=== PATIENT | male | born 1930 | race Caucasian/White ===

== ENCOUNTER 2018-03-28 17:38 | Inpatient (IN) | payer MEDICARE ==
[2018-03-28 17:52] LABS: Actual Bicarbonate (HCO3a) 13.8 mEq/L (22-28); Analyzer IN Cardio ER; Base Excess (BEa) -11.5 mEq/L (-2.0 to +3.0); CO2 Tension 30.3 mmHg (35.0-45.0); Calcium, Ionized 1.15 mmol/L (1.12-1.30); Carboxyhemoglobin (COHb) 0.2 gm% (0.0-3.0); Hemoglobin (Hb) 15.4 g/dL (14.0-18.0); O2 Tension (PaO2) 436.7 mmHg (> 60.0); Potassium - ABG Lab 3.27 mmol/L (3.70-5.30); pH, Arterial 7.28 (7.35-7.45)
[2018-03-28 17:53] LABS: ALV-art Gradient 24.525 (0-20); Puncture Site RRA
--- NOTE | 2018-03-28 18:15 | CT ---
HEAD CT NONCONTRAST: Indication: Altered mental status. Seizure. FINDINGS: There is global atrophy with compensatory dilatation of the ventricular system. Mild chronic ischemic disease. There is no acute intracranial hemorrhage, mass effect or midline shift. IMPRESSION: 1. No acute intracranial hemorrhage or mass effect. 2. Parenchymal atrophy. 3. Mild chronic microvascular ischemic disease. POS: [facility]
--- NOTE | 2018-03-28 18:22 | RAD ---
RIGHT ELBOW TWO VIEWS: History: Pain. FINDINGS/IMPRESSION: No evidence of fracture seen on two view exam. If there is concern for injury, recommend oblique view s. POS: [facility]
--- NOTE | 2018-03-28 18:25 | RAD ---
PORTABLE CHEST: History: Mental status change. Seizure. Post intubation. FINDINGS: ET tube has tip above the sonal. NG tube is in place. There is calcified plaque in both apical regio ns. The lungs appear clear. No infiltrate or vascular congestion. Heart size is normal. IMPRESSION: No acute lung process apparent. POS: [facility]
--- NOTE | 2018-03-28 18:27 | CT ---
CT CERVICAL SPINE: Technique: Multiple contiguous axial images were obtained through the cervical spine with multiplanar reconstruction. Indications: Metal status change, possible seizure. FINDINGS: There are degenerative changes of the cervical spine. Diffuse osteopenia. Loss of disc space and prom inent hypertrophic change. These changes result in central canal stenosis and foraminal stenosis at m ultiple levels. There is no evidence of acute fracture identified. IMPRESSION: Diffuse osteopenia with mottled density of the vertebral bodies. Myeloma or other similar process can not be excluded although these findings may be on the basis of severe osteoporosis. No acute fracture identified. POS: [facility]
[2018-03-28 18:28] LABS: Bilirubin Negative (Negative); Blood, Urine Moderate (Negative); Clarity CLOUDY (Clear); Glucose, Urine (Dipstick) 500 mg/dL (Negative); Leukocyte Negative (Negative); Nitrite Negative (Negative); Protein, Urine (Dipstick) 100 mg/dL (Neg-Trace); Specific Gravity, Urine 1.023 (1.002-1.036); Urobilinogen 0.2 mg/dL (0.2-1.0)
[2018-03-28] MEDS ORDERED: fentaNYL Citrate/PF 2,000 MCG in Sodium Chloride 0.9% 60 ML IV SCH (18:32)
[2018-03-28 18:34] LABS: Bacteria/HPF None Seen HPF (None Seen); RBC/HPF 0-3 HPF (0-3); Squamous Epithelial 0-3 HPF (0-3); WBC/HPF 0-3 HPF (0-3)
[2018-03-28 18:35] LABS: #Basophils 0.1 thou/uL (0.0-0.2); #Lymphocytes 0.3 thou/uL (1.20-3.40); #Monocytes 0.7 thou/uL (0.11-0.59); #Neutrophils 14.9 thou/uL (1.40-6.50); %Basophils 0.6 % (0.0-1.0); %Eosinophils 0.1 % (0.0-10.0); %Lymphocytes 1.6 % (21.0-51.0); %Monocytes 4.3 % (0.0-10.0); %Neutrophils 93.3 % (42.0-75.0); Hemoglobin 15.7 g/dL (14.0-18.0); Mean Corpuscular HGB CONC 32.9 g/dL (32.0-36.0); Mean Corpuscular Hemoglobin 33.1 pg (27.0-31.0); Mean Platelet Volume 7.9 fL (7.4-10.4); Platelet Count 220 thou/uL (130-400); RBC Distribution Width 12.7 % (11.5-14.5); Red Blood Cell (RBC) Count 4.73 mill/uL (4.70-6.10)
[2018-03-28 18:37] LABS: INR-International Normal Ratio 1.3; PTT 28.9 SEC (22.9-36.1)
[2018-03-28 18:50] LABS: Hyaline Casts/LPF 4-6 HYALINE CAST LPF (0-3 Hyaline); Other Casts/LPF 0-3 COARSE GRAN LPF (0-3 Hyaline); Renal Epithelial 0-3 HPF (0-3); Transitional Epithelial 0-3 HPF (0-3)
[2018-03-28 18:56] LABS: Troponin I 0.012 ng/mL (< 0.028)
[2018-03-28 18:57] LABS: ALT (SGPT) 20 U/L (8-55); AST (SGOT) 56 U/L (5-34); Albumin 4.3 g/dL (3.4-4.8); Alkaline Phosphatase 78 U/L (40-150); Anion Gap 23 mmol/L (10-20); BUN (Urea Nitrogen) 19 mg/dL (8.4-25.7); CK (CPK) 1816 U/L (30-200); Calc. Creatinine Clearance 0 mL/min (70-130); Calcium 9.4 mg/dL (7.8-10.44); Carbon Dioxide 14 mmol/L (23-31); Chloride 93 mmol/L (98-107); Estimated GFR-MDRD 71; Globulin 3.4 g/dL (2.4-3.5); Glucose 181 mg/dL (83-110); Potassium 3.7 mmol/L (3.5-5.1); Protein, Total 7.7 g/dL (5.8-8.1); Sodium 126 mmol/L (136-145)
[2018-03-28 18:58] LABS: CKMB 20.4 ng/mL (0-6.6)
--- NOTE | 2018-03-28 19:12 | RAD ---
PORTABLE CHEST SUPINE: Indications: Mental status change. Comparison: Same date, 5:45 p.m. FINDINGS: Central line is in place with tip overlying the SVC. ET tube and NG tube are unchanged. Lungs remain clear. No acute interval change. IMPRESSION: No acute finding. POS: [facility]
--- NOTE | 2018-03-28 20:00 | PDOC.FPRHP ---
- History of Present Illness Chief Complaint: AMS, seizure History of Present Illness: This is an 87 yo M here found at home in his bathtub by his son with AMS, w/ subsequent seizure with EMS en route to the ED. PMH significant for HTN and DM. Patient was intubated at the scene due to GCS <8. Patient was found by son today around 1600. The son had spoke to the patient the day prior and he was his normal self. The son estimates that the patient was in the bathtub from around 1000 until 1600. Per the son, the patient was easily arousable and was able to speak. The son states that he was altered and "speaking nonsense," but was able to respond to stimuli. The patient was unable to state what had happened. Per records, the patient had white frothy liquid around his mouth. Patient was hypertensive with elevated blood sugar 198 and BP 159/100. Per son, patient has never had a prior seizure, stroke, or cardiac issues. The patient lives at home alone. He has a cook who comes every day to prepare his meals. The cook was unable to come today as she has the flu. The patient has a spouse who is in a detention. Of note, the information above was obtained from the patient son who is the MPOA and ER records. Per the son, he and his sister are the MPOAs. The sister is arriving tomorrow from [place]. The son wishes to defer code status until tomorrow when she gets here to help make the decision. - Allergies/Adverse Reactions Allergies Allergy/AdvReac Type Severity Reaction Status Date / Time No Allergy Information Allergy Unverified 03/28/18 18:32 Available - History PMHx: DM, HTN PSHx: none FHx: none Social: no tobacco use, occasional alcohol, no drug use - Review of Systems ROS unobtainable: due to endotracheal tube - Vital signs BP: 164/84 HR: 88 RR: 44 Tmax: 95.9 Pox: 98% on ventilator Wt: 73kg - Physical Exam -Constitutional: ventilated, unresponsive HEENT: normocephalic and atraumatic -HEENT: pupils fixed, nonreactive, MM Dry Neck: supple, trachea midline Heart: RRR, normal S1/S2, no murmurs/rubs/gallops, pulses present, no edema Lungs: CTAB, no respiratory distress, good air movement Abdomen: soft, bowel sounds present Musculoskeletal: normal structure -Skin: Stage 2 right heel, stage 3 left heel, stage 3 right mid marcum, stage 2 sacrum, stage 2 gluteal fold; contusion on right elbow; contusions bilateral knees FMR H&P: Results - Labs Result Diagrams: 03/28/18 18:20 03/28/18 18:21 Lab results: WBC 16.0 thou/uL (4.8-10.8) H 03/28/18 18:20 Hgb 15.7 g/dL (14.0-18.0) 03/28/18 18:20 Hct 47.6 % (42.0-52.0) 03/28/18 18:20 MCV 101.0 fL (78.0-98.0) H 03/28/18 18:20 Plt Count 220 thou/uL (130-400) 03/28/18 18:20 Neutrophils % 93.3 % (42.0-75.0) H 03/28/18 18:20 ABG pH 7.28 (7.35-7.45) L 03/28/18 17:48 ABG pCO2 30.3 mmHg (35.0-45.0) L 03/28/18 17:48 ABG pO2 436.7 mmHg (> 60.0) H 03/28/18 17:48 Sodium 126 mmol/L (136-145) L 03/28/18 18:21 Potassium 3.7 mmol/L (3.5-5.1) 03/28/18 18:21 Chloride 93 mmol/L (98-107) L 03/28/18 18:21 Carbon Dioxide 14 mmol/L (23-31) L 03/28/18 18:21 BUN 19 mg/dL (8.4-25.7) 03/28/18 18:21 Creatinine 1.00 mg/dL (0.6-1.3) 03/28/18 18:21 Glucose 181 mg/dL (83-110) H 03/28/18 18:21 Lactic Acid 8.7 mmol/L (0.5-2.2) H* 03/28/18 18:20 Calcium 9.4 mg/dL (7.8-10.44) 03/28/18 18:21 Total Bilirubin 1.0 mg/dL (0.2-1.2) 03/28/18 18:21 AST 56 U/L (5-34) H 03/28/18 18:21 ALT 20 U/L (8-55) 03/28/18 18:21 Alkaline Phosphatase 78 U/L (40-150) 03/28/18 18:21 Creatine Kinase 1816 U/L (30-200) H 03/28/18 18:21 CK-MB (CK-2) 20.4 ng/mL (0-6.6) H* 03/28/18 18:20 Serum Total Protein 7.7 g/dL (5.8-8.1) 03/28/18 18:21 Albumin 4.3 g/dL (3.4-4.8) 03/28/18 18:21 Urine Ketones 40 mg/dL (Negative) H 03/28/18 18:00 Urine Blood Moderate (Negative) H 03/28/18 18:00 Urine Nitrite Negative (Negative) 03/28/18 18:00 Ur Leukocyte Esterase Negative (Negative) 03/28/18 18:00 Urine RBC 0-3 HPF (0-3) 03/28/18 18:00 Urine WBC 0-3 HPF (0-3) 03/28/18 18:00 Ur Squamous Epith Cells 0-3 HPF (0-3) 03/28/18 18:00 Urine Bacteria None Seen HPF (None Seen) 03/28/18 18:00 - Radiology Interpretation Chest x-ray Status: report reviewed by me (No acute finding) Other Status: report reviewed by me (CT - cervical spine - diffuse osteopenia, no acute fracture) FMR H&P: A/P - Problem List (1) Hyponatremia Current Visit: Yes Status: Acute Code(s): E87.1 - HYPO-OSMOLALITY AND HYPONATREMIA (2) Lactic acid acidosis Current Visit: Yes Status: Acute Code(s): E87.2 - ACIDOSIS (3) Altered mental state Current Visit: Yes Status: Acute Code(s): R41.82 - ALTERED MENTAL STATUS, UNSPECIFIED (4) Rhabdomyolysis Current Visit: Yes Status: Acute Code(s): M62.82 - RHABDOMYOLYSIS (5) Diabetes mellitus Current Visit: Yes Status: Acute Code(s): E11.9 - TYPE 2 DIABETES MELLITUS WITHOUT COMPLICATIONS - Plan SIRS - hypothermia and elevated WBC - No source of infection - Pro-alok ordered - blood and urine cx pending - LP to r/o meningitis Metabolic Encephalopathy - likely 2/2 to electrolyte abnormalities - Will give IVF, currently on vent and will wean as appropriate - Will obtain UDS and blood serum - serum drug screen - LP to r/o meningitis New onset seizure - Differential: electrolyte abnormality, stroke, mass, infection, intoxication - can consider MRI in the AM Acute Respiratory Failure - currently on ventilation - vent sedation protocol, vent management per pulm - Will monitor respiratory status and VS Rhabdomyolysis - CK 20.4 - Will give NS bolus and NS fluid maintenance - AM CMP, CK Lactic Acidosis - Will trend lactic acid - Will give NS Metabolic Acidosis - Will give NS Hyponatremia - Na 126 - Will start on NS @ 115mls/hr - Will repeat BMP every 4 hours - can consider bolus with NS Leukocytosis - Urine and blood cx pending - Will trend with CBC DM - mild SS - ACHS accuchecks Decubitus Ulcers, present on admission - stage 3 on right marcum and stage 2 right heel, stage 3 left heel, stage 2 sacrum, stage 2 gluteal fold - Wound care consulted DISPO: admit to ICU VTE prophylaxis: lovenox GI prophylaxis: protonix CODE: FULL, will need to have discussion with son and daughter FMR H&P: Upper Level - Plan Date/Time: 03/28/181953 I, [], have evaluated this patient and agree with findings/plan as outlined by regulatory internship resident. Pertinent changes/additions are listed here. Attending Addendum - Attending Addendum Date/Time: 03/28/182128 I personally evaluated the patient and discussed the management with Drs. Mitchell and Garcia at time of admission. I agree with the History, Examination, Assessment and Plan documented above with any addition or exceptions noted below. Uncelar what incitign event was. Infectious vs, electrlyte abnormality, vs stroke vs intxoication. [place] in progress. Antibiotics ordered.
[2018-03-28] MEDS ORDERED: Sodium Chloride 0.9% 1,000 ML IV SCH ×3 (20:44→21:15)
[2018-03-28] MEDS ORDERED: Morphine 2 MG/ML SYRINGE SLOW IVP PRN (20:45)
[2018-03-28] MEDS ORDERED: DISCONTINUE PREVIOUS NARCOTIC PAIN MEDICATIONS AND BENZODIAZEPINES FS SCH (20:45)
[2018-03-28] MEDS ORDERED: Lorazepam 2 MG/ML VIAL SLOW IVP PRN (20:45)
[2018-03-28] MEDS ORDERED: Propofol 1,000 MG/100 ML VIAL IV PRN (20:45)
[2018-03-28] MEDS ORDERED: Fentanyl BOLUS 250 ML IVPB PRN (20:45)
[2018-03-28] MEDS ORDERED: Propofol BOLUS 1,000 MG/100 ML VIAL IV PRN (20:45)
[2018-03-28] MEDS ORDERED: Ondansetron PF 4 MG/2 ML Vial IVP PRN (20:59)
[2018-03-28] MEDS ORDERED: Acetaminophen 650 MG Suppository PR PRN (20:59)
[2018-03-28] MEDS ORDERED: Acetaminophen 325 MG TAB PO PRN (20:59)
[2018-03-28] MEDS ORDERED: HumaLOG 300 UNITS/3 ML VIAL SC PRN (20:59)
[2018-03-28] MEDS ORDERED: Ondansetron ODT 4 MG TAB PO PRN (20:59)
[2018-03-28] MEDS ORDERED: Ventilator Sedation Protocol 1 EACH FS SCH (21:12)
[2018-03-28 21:44] LABS: Amphetamine Not Detected (NotDetected); Barbiturates Screen Not Detected (NotDetected); Benzodiazepine Screen Not Detected (NotDetected); Cocaine Metabolite Screen Not Detected (NotDetected); Medtox Control Line Valid? VALID (VALID); Medtox Reader # READER 1; Methadone Not Detected (NotDetected); Methamphetamine Not Detected (NotDetected); Opiate Screen Not Detected (NotDetected); Oxycodone Screen Not Detected (NotDetected); Phencyclidine (PCP) Not Detected (NotDetected); THC/Cannabinoid Screen Not Detected (NotDetected); Tricyclic Screen Not Detected (NotDetected)
[2018-03-28 21:51] LABS: Acetaminophen Less than 6.0 mcg/mL (10.0-30.0); Alcohol Less than 10 mg/dL (Less than 10); Salicylate Less than 8.0 mg/dL (15.0-30.0)
[2018-03-28 22:12] LABS: Anion Gap 13 mmol/L (10-20); BUN (Urea Nitrogen) 16 mg/dL (8.4-25.7); Calc. Creatinine Clearance 65 mL/min (70-130); Calcium 7.4 mg/dL (7.8-10.44); Carbon Dioxide 18 mmol/L (23-31); Chloride 101 mmol/L (98-107); Estimated GFR-MDRD Greater than 90; Glucose 131 mg/dL (83-110); Potassium 3.4 mmol/L (3.5-5.1); Sodium 129 mmol/L (136-145)
[2018-03-28] MEDS: Vancomycin HCl 1.5 GM in Sodium Chloride 0.9% 250 ML 300 ML IVPB SCH (23:02)
[2018-03-28 23:12] LABS: Lactic Acid 2.2 mmol/L (0.5-2.2)
[2018-03-28 23:45] LABS: Osmolality, Urine 648 mOsm/kg (300-900)
[2018-03-28] MEDS ORDERED: CCU Electrolyte Replacement 1 EACH FS ONE (23:55)
[2018-03-28] MEDS ORDERED: Magnesium 2 GM/NS 0.9% 100 ML 2 GM in Premix Bag 1 BAG IVPB PRN (23:56)
[2018-03-28] MEDS ORDERED: Potassium Phosphate 9 MMOL in Sodium Chloride 0.9% 100 ML IVPB PRN (23:56)
[2018-03-28] MEDS ORDERED: Potassium Chloride 40 MEQ in Premix Bag 1 BAG IVPB PRN (23:56)
[2018-03-28] MEDS ORDERED: Magnesium Oxide 400 MG TAB PO PRN ×2 (23:56)
[2018-03-28] MEDS ORDERED: Potassium Phosphate 15 MMOL in Sodium Chloride 0.9% 250 ML 250 ML IV PRN (23:56)
[2018-03-28] MEDS ORDERED: CCU ELECTROLYTE REPLACEMENT PROTOCOL FS PRN (23:56)
[2018-03-28] MEDS ORDERED: Potassium Chloride 40 MEQ in Sodium Chloride 0.9% 250 ML 250 ML IVPB PRN (23:56)
[2018-03-28] MEDS ORDERED: Potassium Phosphate 12 MMOL in Sodium Chloride 0.9% 250 ML 250 ML IV PRN (23:56)
[2018-03-28] MEDS ORDERED: Potassium Chloride 20 MEQ TAB PO PRN (23:56)
[2018-03-29 00:07] LABS: Sodium, Urine 65 mmol/L (Not Available)
[2018-03-29 06:43] LABS: Mean Corpuscular HGB CONC 33.5 g/dL (32.0-36.0); Mean Corpuscular Hemoglobin 33.6 pg (27.0-31.0); Mean Platelet Volume 7.7 fL (7.4-10.4); Platelet Count 187 thou/uL (130-400); RBC Distribution Width 12.7 % (11.5-14.5); Red Blood Cell (RBC) Count 3.57 mill/uL (4.70-6.10); White Blood Cell (WBC) Count 9.4 thou/uL (4.8-10.8)
[2018-03-29 06:44] LABS: Band 18 % (5-11); Lymphocytes 6 % (21-51); MDiff Complete? YES; Monocytes 5 % (0-10); Neutrophil 71 % (42-75); PLT Morphology Comment Appears Adequate; RBC Morphology Normal
[2018-03-29 07:10] LABS: ALT (SGPT) 17 U/L (8-55); AST (SGOT) 40 U/L (5-34); Albumin 3.1 g/dL (3.4-4.8); Alkaline Phosphatase 58 U/L (40-150); Anion Gap 11 mmol/L (10-20); BUN (Urea Nitrogen) 19 mg/dL (8.4-25.7); Bilirubin, Total 0.8 mg/dL (0.2-1.2); CK (CPK) 1235 U/L (30-200); Calc. Creatinine Clearance 54 mL/min (70-130); Calcium 7.7 mg/dL (7.8-10.44); Carbon Dioxide 22 mmol/L (23-31); Chloride 104 mmol/L (98-107); Estimated GFR-MDRD 80; Globulin 2.3 g/dL (2.4-3.5); Glucose 93 mg/dL (83-110); Potassium 3.7 mmol/L (3.5-5.1); Protein, Total 5.4 g/dL (5.8-8.1); Sodium 133 mmol/L (136-145)
--- NOTE | 2018-03-29 07:21 | PDOC.FM ---
- Subjective Subjective: 87 yo M admitted for metabolic encephalopathy. Over night patient became more response and started to follow commands. No new concerns from nursing. Patient will answer yes and no questions with head nods, however appears to be confused. - Objective MAR Reviewed: Yes Vital Signs & Weight: Vital Signs (12 hours) Resp Pulse Ox 03/29/18 05:00 14 03/29/18 04:00 14 03/29/18 03:00 15 03/29/18 01:37 16 03/28/18 23:44 15 03/28/18 22:00 14 03/28/18 21:55 14 99 03/28/18 21:12 14 03/28/18 20:59 99 Weight Admit Weight 65.1 kg Weight 66.5 kg Most Recent Monitor Data Heart Rate from ECG 87 NIBP 118/63 NIBP BP-Mean 81 Respiration from ECG 14 SpO2 100 I&O: 03/28/18 03/29/18 03/30/18 06:59 06:59 06:59 Intake Total 3457 Output Total 445 Balance 3012 Result Diagrams: 03/29/18 05:59 03/29/18 05:59 Radiology Reviewed by me: Yes <Crow Watson - Last Filed: 03/29/18 09:20> - Objective Vital Signs & Weight: Vital Signs (12 hours) Pulse Resp BP 03/29/18 07:43 96 91/66 03/29/18 07:00 16 03/29/18 05:00 14 03/29/18 04:00 14 03/29/18 03:00 15 03/29/18 01:37 16 03/28/18 23:44 15 Weight Admit Weight 65.1 kg Weight 66.5 kg Most Recent Monitor Data Heart Rate from ECG 104 NIBP 109/66 NIBP BP-Mean 80 Respiration from ECG 16 SpO2 100 I&O: 03/28/18 03/29/18 03/30/18 06:59 06:59 06:59 Intake Total 3457 Output Total 445 20 Balance 3012 -20 Result Diagrams: 03/29/18 05:59 03/29/18 05:59 <Aleksandra Blanco - Last Filed: 03/29/18 11:11> Phys Exam - Physical Examination Intubated, low sedation HEENT: PERRLA, sclera anicteric Neck: no nodes Respiratory: clear to auscultation bilateral Cardiovascular: RRR TTP in all quads, non rigid. BS x4 Musculoskeletal: no edema Localizes pain, follows commands, responds to yes/no questions with nod. Currently intubated. Moves all 4 limbs Deviation from normal: unable to determine Skin: no rash <ShirleyCrow - Last Filed: 03/29/18 09:20> Dx/Plan (1) Metabolic encephalopathy Code(s): G93.41 - METABOLIC ENCEPHALOPATHY Status: Acute (2) Hyponatremia Code(s): E87.1 - HYPO-OSMOLALITY AND HYPONATREMIA Status: Acute (3) Lactic acid acidosis Code(s): E87.2 - ACIDOSIS Status: Resolved (4) Rhabdomyolysis Code(s): M62.82 - RHABDOMYOLYSIS Status: Acute (5) New onset seizure Code(s): R56.9 - UNSPECIFIED CONVULSIONS Status: Acute (6) Diabetes mellitus Code(s): E11.9 - TYPE 2 DIABETES MELLITUS WITHOUT COMPLICATIONS Status: Chronic (7) SIRS (systemic inflammatory response syndrome) Code(s): R65.10 - SIRS OF NON-INFECTIOUS ORIGIN W/O ACUTE ORGAN DYSFUNCTION Status: Resolved (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 Will add zosyn for gram neg coverage - RUQ US due to TTP - Continue IVF and monitor output - ready to extubate SIRS, resolved New onset seizure - unclear etiology and history, no seizure activity noted since arrival. It is possible that patient did not seize and this was assumed based on family's history Rhabdomyolysis - CK improving, continue IVF. Lactic Acidosis, resolved Hyponatremia - Improved to 133, continue to monitor Leukocytosis - Improving. Infectious vs reactive. Continue abx as above DM - mild SS - ACHS accuchecks - Will need home meds from family Decubitus Ulcers, present on admission - stage 3 on right marcum and stage 2 right heel, stage 3 left heel, stage 2 sacrum, stage 2 gluteal fold - Wound care consulted Dispo: Patient is improving, however etiology of AMS is still unclear. Will work to rule out various etiologies as above. Currently stable. <Crow Watson - Last Filed: 03/29/18 09:20> Attending Addendum - Attending Addendum Date/Time: 03/29/18 3259 I personally evaluated the patient and discussed the management with Dr. Watson I agree with the History, Examination, Assessment and Plan documented above with any addition or exceptions noted below- Intubated; opens eyes; follows few commands. Afebrile VSS. A/P: 1) Hyponatremia- resolved. Cotninue to ivf and continue to monitor. 2) Acute resp failure- resolving; plan for possible extubation later this morning. 3) Seizure- uncertain etiology; Will plan for MRI once extubated. <Aleksandra Blanco - Last Filed: 03/29/18 11:11>
[2018-03-29 08:34] LABS: Actual Bicarbonate (HCO3a) 17.1 mEq/L (22-28); CO2 Tension 30.3 mmHg (35.0-45.0); Calcium, Ionized 1.07 mmol/L (1.12-1.30); Carboxyhemoglobin (COHb) 0.9 gm% (0.0-3.0); Hemoglobin (Hb) 12.8 g/dL (14.0-18.0); O2 Tension (PaO2) 121.8 mmHg (> 60.0); Potassium - ABG Lab 4.75 mmol/L (3.70-5.30); pH, Arterial 7.37 (7.35-7.45)
[2018-03-29 08:42] LABS: ALV-art Gradient 125.525 (0-20); Puncture Site RRA
[2018-03-29] MEDS ORDERED: DC Sedation Protocol FS ONE (09:11)
--- NOTE | 2018-03-29 10:12 | CON ---
DATE OF CONSULTATION: 03/29/2018 Thirty-five minutes critical care time. HISTORY OF PRESENT ILLNESS: This is an 87-year-old male who was admitted last night with altered men nataliia status. He was intubated in the emergency room because of that. Little else is known regarding his past history. Apparently, the family was concerned because he had decreased mental status while in the bathtub. He has some frothy liquid coming out of his mouth. PAST MEDICAL HISTORY: 1. Diabetes. 2. Hypertension. PAST SURGICAL HISTORY: Unknown. PSYCHIATRIC HISTORY: Unknown. ALLERGIES: None. MEDICATIONS PRIOR TO ADMISSION: Eliquis, citalopram, amlodipine, and metformin. SOCIAL HISTORY: Unknown. REVIEW OF SYSTEMS: Cannot be obtained because of the patient's altered mental status. He is intubat ed. PHYSICAL EXAMINATION: VITAL SIGNS: Temperature 99.3, pulse 104, blood pressure 109/66. GENERAL: He is an elderly male who is very hard of hearing. He is able to follow commands when you talk into his ear very loud.. HEENT: Pupils reactive, sclerae icteric. Oropharynx clear. NECK: No adenopathy or JVD. LUNGS: Clear without wheezing or rhonchi. CARDIOVASCULAR: S1, S2 regular, without murmur. ABDOMEN: He has some mild right upper quadrant tender to deep palpation. EXTREMITIES: No clubbing, cyanosis, or edema. NEUROLOGIC: He moves all 4 extremities. LABORATORY DATA: Sodium 133, potassium 3.7, chloride 104, CO2 22, BUN 19, creatinine 0.9, glucose 93 . His CK on admission was 1816, now it is 1235, albumin 3.1, AST 40, ALT 17, total bilirubin 0.8, pH 7.37, pCO2 30, pO2 120, on SIMV rate 14, tidal volume 500, PEEP 5, pressure support 10, FiO2 40%. W hipolito blood cell count 9.4, hematocrit 35.8, platelet count 187. Urinalysis showed ketones and glucos e. Tox screen was negative. Chest x-ray shows no mass, effusion or infiltrate. Head CT was negative. ASSESSMENT: 1. Acute respiratory failure - secondary to altered mental status. 2. Possible underlying sepsis. 3. Rule out stroke. 4. Diabetes mellitus. 5. Dehydration. 6. Mild rhabdomyolysis. RECOMMENDATIONS: 1. I would go ahead and extend his antibiotic coverage to Zosyn or cefepime to add gram negative cov erage to his existing regimen. I think he is safe enough to go ahead and extubate. 2. Gastrointestinal prophylaxis with Pepcid or Protonix. 3. Deep venous thrombosis prophylaxis with enoxaparin. 4. Continue IV rehydration. 5. Speak with family when they become available.
[2018-03-29] MEDS: Enoxaparin Sodium 40 MG/0.4 ML SYRINGE SC SCH (11:03)
[2018-03-29] MEDS: Sodium Chloride 0.9% 1,000 ML IV SCH ×2 (11:03→14:51)
[2018-03-29] MEDS: Pantoprazole 40 MG VIAL IVP SCH (11:03)
[2018-03-29] MEDS: Piperacillin/Tazobactam 3.375 GM in Sodium Chloride 0.9% 100 ML IVPB SCH ×3 (12:12→23:28)
[2018-03-29] MEDS: Diltiazem 125 MG in Sodium Chloride 0.9% 100 ML IVPB SCH ×2 (12:18→22:09)
--- NOTE | 2018-03-29 13:23 | ULT ---
RIGHT UPPER QUADRANT ULTRASOUND: History: 87-year-old male with history of right upper quadrant pain with concern for cholecystitis. FINDINGS: Exam was somewhat limited because of patient movement and positioning limitations. The gallbladder appears to be distended and is dilated without an overt calculus or gallbladder wall thickening or pericholecystic fluid. Common bile duct is 0.4 cm. A small right kidney. Visualized blanco creas is unremarkable. No right upper quadrant fluid collection. IMPRESSION: Dilated and distended gallbladder without overt gallstones or gallbladder wall thickening or ductal d ilatation. Certainly a calculus cholecystitis is not excluded. Consider follow up Nuclear Medicine he patobiliary scan for further assessment. No ductal dilatation. Small right kidney. POS: [facility]
[2018-03-29] MEDS: Vancomycin HCl 1.5 GM in Sodium Chloride 0.9% 250 ML 300 ML IVPB SCH (20:16)
[2018-03-30] MEDS: Sodium Chloride 0.9% 1,000 ML IV SCH (02:00)
[2018-03-30] MEDS: Piperacillin/Tazobactam 3.375 GM in Sodium Chloride 0.9% 100 ML IVPB SCH ×3 (05:13→18:12)
[2018-03-30 05:42] LABS: Band 15 % (5-11); Hemoglobin 12.9 g/dL (14.0-18.0); Hypochromia SLIGHT = 6-15 cells (100X) (0-5/hpf); Lymphocytes 3 % (21-51); MDiff Complete? YES; Macrocytosis SLIGHT = 6-15 cells (100X) (0-5/hpf); Mean Corpuscular HGB CONC 32.3 g/dL (32.0-36.0); Mean Corpuscular Hemoglobin 33.8 pg (27.0-31.0); Mean Platelet Volume 7.9 fL (7.4-10.4); Monocytes 2 % (0-10); Neutrophil 80 % (42-75); PLT Morphology Comment Appears Adequate; Platelet Count 188 thou/uL (130-400); Polychromasia SLIGHT = 2-3 cells (100X) (0-2/hpf); RBC Distribution Width 13.1 % (11.5-14.5); Red Blood Cell (RBC) Count 3.81 mill/uL (4.70-6.10); White Blood Cell (WBC) Count 13.7 thou/uL (4.8-10.8)
[2018-03-30 05:45] LABS: ALT (SGPT) 29 U/L (8-55); AST (SGOT) 72 U/L (5-34); Albumin 3.2 g/dL (3.4-4.8); Alkaline Phosphatase 56 U/L (40-150); Anion Gap 19 mmol/L (10-20); BUN (Urea Nitrogen) 24 mg/dL (8.4-25.7); Bilirubin, Total 0.8 mg/dL (0.2-1.2); Calc. Creatinine Clearance 44 mL/min (70-130); Calcium 8.1 mg/dL (7.8-10.44); Carbon Dioxide 12 mmol/L (23-31); Chloride 109 mmol/L (98-107); Estimated GFR-MDRD 61; Globulin 2.7 g/dL (2.4-3.5); Glucose 105 mg/dL (83-110); Potassium 4.7 mmol/L (3.5-5.1); Protein, Total 5.9 g/dL (5.8-8.1); Sodium 135 mmol/L (136-145)
--- NOTE | 2018-03-30 06:49 | PDOC.FM ---
- Subjective Subjective: Patient doing well this morning. Was extubated yesterday without issue, however needed BiPAP over night for low O2 sat. Yesterday he was noted to be in afib with rate over 110 as was started on a cardizem drip. Today his is much more interactive and will answer questions. He does not remember events leading up to hospitalization. He denies any complaint this am. Other than needed for BiPAP , there were no acute events over night. - Objective MAR Reviewed: Yes Vital Signs & Weight: Vital Signs (12 hours) Pulse Ox 03/29/18 20:00 100 Weight Admit Weight 65.1 kg Weight 68.9 kg Most Recent Monitor Data Heart Rate from ECG 95 NIBP 137/84 NIBP BP-Mean 101 Respiration from ECG 16 SpO2 96 I&O: 03/28/18 03/29/18 03/30/18 06:59 06:59 06:59 Intake Total 3457 2498 Output Total 445 590 Balance 3012 1908 Result Diagrams: 03/30/18 04:55 03/30/18 04:55 <Crow Watson - Last Filed: 03/30/18 06:45> - Objective Vital Signs & Weight: Vital Signs (12 hours) Temp Pulse Pulse Pulse BP BP BP 04/04/18 10:11 88 132/68 04/04/18 09:29 88 103 H 136/65 137/87 04/04/18 08:00 98.1 F 04/04/18 05:00 97.5 F L 04/04/18 03:10 104 H 177/130 H 04/04/18 00:00 97.6 F Weight Admit Weight 65.1 kg Weight 62.7 kg Most Recent Monitor Data Heart Rate from ECG 94 NIBP 132/68 NIBP BP-Mean 89 Respiration from ECG 16 SpO2 100 I&O: 04/03/18 04/04/18 04/05/18 06:59 06:59 06:59 Intake Total 3058.5 3357.3 60 Output Total 1750 2065 240 Balance 1308.5 1292.3 -180 Result Diagrams: 04/04/18 04:20 04/04/18 04:20 <Aleksandra Blanco - Last Filed: 04/04/18 11:09> Phys Exam - Physical Examination Constitutional: NAD HEENT: PERRLA, sclera anicteric Neck: no nodes, no JVD Respiratory: clear to auscultation bilateral Cardiovascular: no significant murmur Irregularly irregular Gastrointestinal: soft, non-tender, no distention, positive bowel sounds Musculoskeletal: no edema Neurological: non-focal, normal sensation, moves all 4 limbs Lymphatic: no nodes Deviation from normal: A&O to self only Deviation from normal: Multiple decubitus ulcers on LE and sacrum <Crow Watson - Last Filed: 03/30/18 06:45> Dx/Plan (4) Atrial fibrillation with RVR Code(s): I48.91 - UNSPECIFIED ATRIAL FIBRILLATION Status: Acute (5) Metabolic encephalopathy Code(s): G93.41 - METABOLIC ENCEPHALOPATHY Status: Acute (6) Hyponatremia Code(s): E87.1 - HYPO-OSMOLALITY AND HYPONATREMIA Status: Acute (7) Lactic acid acidosis Code(s): E87.2 - ACIDOSIS Status: Resolved (8) Rhabdomyolysis Code(s): M62.82 - RHABDOMYOLYSIS Status: Acute (9) New onset seizure Code(s): R56.9 - UNSPECIFIED CONVULSIONS Status: Acute (10) Diabetes mellitus Code(s): E11.9 - TYPE 2 DIABETES MELLITUS WITHOUT COMPLICATIONS Status: Chronic (11) SIRS (systemic inflammatory response syndrome) Code(s): R65.10 - SIRS OF NON-INFECTIOUS ORIGIN W/O ACUTE ORGAN DYSFUNCTION Status: Resolved (12) 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 - Continue Vanc and Zosyn until cultures result - RUQ US found CBD of 4mm, no stones, cannot r/o acalculous cholecystitis - Output has been on the low end of normal, pointing to significant dehydration. This patient's heart history is unclear at this time, will continue to rehydrate carefully. - Contact family today regarding medical hx and baseline function. SIRS, resolved New onset seizure - unclear etiology and history, no seizure activity noted since arrival. It is possible that patient did not seize and this was assumed based on family's history - Consider MRI Rhabdomyolysis - CK improving, continue IVF. Lactic Acidosis, resolved Hyponatremia - Improved to 135, continue to monitor Leukocytosis - Slight bump today with 80% neutrophils. No obvious infectious source. Continue to monitor. DM - Sugar has been controlled thus far - mild SS - ACHS accuchecks - Will need home meds from family Decubitus Ulcers, present on admission - stage 3 on right marcum and stage 2 right heel, stage 3 left heel, stage 2 sacrum, stage 2 gluteal fold - Wound care consulted Dispo: Patient is improving and may be ready to move from ICU today. <Crow Watson - Last Filed: 03/30/18 06:45> Attending Addendum - Attending Addendum Date/Time: 04/04/18 0771 I personally evaluated the patient and discussed the management with Dr. Watson on 03/30/18 I agree with the History, Examination, Assessment and Plan documented above with any addition or exceptions noted below- Patient extubated yesterday. Awake and alert. Still with some confusion at times but overall improved. Afebrile VSS. A/P: 1) Acute resp failure secondary to metabolic encephalopathy- resolved. 2) Metabolic encephalopathy- unclear etiology; possibly from dehydration and electrolyte abnormalities- continue IVF; plan to d/c zachary. Awaiting family to obtain more history. <Aleksandra Blanco - Last Filed: 04/04/18 11:09>
--- NOTE | 2018-03-30 08:41 | PRG ---
DATE OF SERVICE: 03/30/2018 SUBJECTIVE: He was extubated yesterday, but developed atrial fibrillation afterwards. He then devel oped some respiratory insufficiency and required BiPAP overnight. He is confused this morning. He h ad to be put in restraints for fear pulling out his Sanchez catheter. PHYSICAL EXAMINATION: VITAL SIGNS: His temperature is 98.4 with a T-max of 99.5, pulse is 95, blood pressure 137/84. Inta ke for 24 hours 2498, output 590. HEENT: Unremarkable. NECK: Without adenopathy or JVD. LUNGS: Clear anteriorly. CARDIOVASCULAR: S1, S2, irregularly irregular, but rate controlled. ABDOMEN: Soft, nontender. EXTREMITIES: No edema. LABORATORY DATA: White blood cell count 13.7, hematocrit 39.8, platelet count 188. Sodium 135, pota ssium 4.7, chloride 109, CO2 12, BUN 24, creatinine 1.1, glucose 105. ASSESSMENT: 1. Status post acute respiratory failure requiring mechanical ventilation. 2. Encephalopathy. 3. Atrial fibrillation with rapid ventricular response - now rate controlled. 4. Probable underlying sepsis and volume depletion. 5. Mild rhabdomyolysis. 6. Non-anion gap metabolic acidosis. PLAN: 1. Continue antibiotics, follow culture results. 2. Hopefully he can hold off BiPAP. 3. Change to oral Cardizem for rate control. Hopefully wean off the IV drip. 4. May require further intervention on the acidosis.
[2018-03-30] MEDS: Sodium Bicarbonate 70 MEQ in Sodium Chloride 0.45% 1,000 ML IV SCH ×2 (09:06→20:40)
[2018-03-30] MEDS: Pantoprazole 40 MG VIAL IVP SCH (09:06)
[2018-03-30] MEDS: Enoxaparin Sodium 40 MG/0.4 ML SYRINGE SC SCH (09:06)
--- NOTE | 2018-03-30 16:02 | PDOC.EVN ---
Event Note - Event Note Event Note: Paged by nurse stating pt's daughter has arrived and would like to discuss case with primary team. I presented to bedside and explained to Jes Calles that I am part of A&M team seeing her father but not directly involved in care. Jes Calles states that she is MPOA along with her brother. She explains that, at baseline, pt is usually A& Ox3, lives on his own and is very functional. He lives on a piece of land outside of [place] with his cats. Earlier this year, his , Irina, was moved into a nursing facility due to worsening dementia. He has somebody that lives nearby that will check on him twice daily. Jes Calles lives in [place] herself but believes he likely fell on Wednesday and was not found until Wednesday. This has happened once before where he was found down and required treatment for "dehydration." Pt did not require intubation at that time. Jes Calles confirms he is FULL code. She notes his primary care physician is Dr. Hugo at [facility] in [place] and he recently had some medication changes. Jes Calles plans on being present throughout the pt's hospitalization and is interested in the possibility of the pt being transferred with her back to [place]. Will notify primary team and defer disposition regarding care plan at this time.
[2018-03-30 20:29] LABS: Vancomycin, Trough 18.1 ug/mL
[2018-03-30] MEDS: Vancomycin HCl 1.5 GM in Sodium Chloride 0.9% 250 ML 300 ML IVPB SCH (20:40)
[2018-03-31 05:26] LABS: ALT (SGPT) 33 U/L (8-55); AST (SGOT) 60 U/L (5-34); Albumin 3.3 g/dL (3.4-4.8); Alkaline Phosphatase 51 U/L (40-150); Anion Gap 15 mmol/L (10-20); BUN (Urea Nitrogen) 24 mg/dL (8.4-25.7); Calc. Creatinine Clearance 45 mL/min (70-130); Calcium 8.3 mg/dL (7.8-10.44); Carbon Dioxide 19 mmol/L (23-31); Chloride 107 mmol/L (98-107); Estimated GFR-MDRD 61; Globulin 2.6 g/dL (2.4-3.5); Glucose 134 mg/dL (83-110); Potassium 3.3 mmol/L (3.5-5.1); Protein, Total 5.9 g/dL (5.8-8.1); Sodium 138 mmol/L (136-145)
[2018-03-31 05:27] LABS: Band 23 % (5-11); Hemoglobin 10.9 g/dL (14.0-18.0); Lymphocytes 2 % (21-51); MDiff Complete? YES; Mean Corpuscular HGB CONC 33.3 g/dL (32.0-36.0); Mean Corpuscular Hemoglobin 33.7 pg (27.0-31.0); Mean Platelet Volume 7.4 fL (7.4-10.4); Monocytes 4 % (0-10); Neutrophil 71 % (42-75); Platelet Count 198 thou/uL (130-400); RBC Distribution Width 13.1 % (11.5-14.5); Red Blood Cell (RBC) Count 3.23 mill/uL (4.70-6.10)
[2018-03-31] MEDS: Piperacillin/Tazobactam 3.375 GM in Sodium Chloride 0.9% 100 ML IVPB SCH ×2 (06:07)
[2018-03-31] MEDS: Sodium Bicarbonate 70 MEQ in Sodium Chloride 0.45% 1,000 ML IV SCH (06:20)
--- NOTE | 2018-03-31 07:54 | PDOC.FM ---
- Subjective Subjective: Patient found resting comfortably this morning with no specific complaints. No acute events over night according to nursing. Patient denies all symptoms in ROS - Objective MAR Reviewed: Yes Vital Signs & Weight: Vital Signs (12 hours) Temp Pulse Ox 03/31/18 04:00 98.7 F 03/31/18 00:00 98.1 F 03/30/18 20:00 98.0 F 100 Weight Admit Weight 65.1 kg Weight 70 kg Most Recent Monitor Data Heart Rate from ECG 92 NIBP 158/99 NIBP BP-Mean 118 Respiration from ECG 18 SpO2 99 I&O: 03/30/18 03/31/18 04/01/18 06:59 06:59 06:59 Intake Total 2498 3150 Output Total 590 1320 Balance 1908 1830 Result Diagrams: 03/31/18 04:47 03/31/18 04:47 <Crow Watson - Last Filed: 03/31/18 07:52> - Objective Vital Signs & Weight: Vital Signs (12 hours) Temp Pulse BP Pulse Ox 03/31/18 10:02 93 153/95 H 03/31/18 10:01 93 153/95 H 03/31/18 08:00 99.2 F 98 03/31/18 04:00 98.7 F 03/31/18 00:00 98.1 F Weight Admit Weight 65.1 kg Weight 70 kg Most Recent Monitor Data Heart Rate from ECG 90 NIBP 187/97 NIBP BP-Mean 127 Respiration from ECG 19 SpO2 98 I&O: 03/30/18 03/31/18 04/01/18 06:59 06:59 06:59 Intake Total 2498 3150 Output Total 590 1320 385 Balance 1908 1830 -385 Result Diagrams: 03/31/18 04:47 03/31/18 04:47 <Farhat Arthur - Last Filed: 03/31/18 11:26> Phys Exam - Physical Examination Constitutional: NAD HEENT: moist MMs Neck: no JVD Respiratory: clear to auscultation bilateral Cardiovascular: no significant murmur irregularly irregular Gastrointestinal: soft, non-tender, no distention, positive bowel sounds Musculoskeletal: no edema Neurological: non-focal, normal sensation, moves all 4 limbs Deviation from normal: Patient is confused and A&O to self only Deviation from normal: Multuiple ulcers on LE and sacrum <Crow Watson - Last Filed: 03/31/18 07:52> Dx/Plan (1) Atrial fibrillation with RVR Code(s): I48.91 - UNSPECIFIED ATRIAL FIBRILLATION Status: Acute (2) Metabolic encephalopathy Code(s): G93.41 - METABOLIC ENCEPHALOPATHY Status: Acute (3) Hyponatremia Code(s): E87.1 - HYPO-OSMOLALITY AND HYPONATREMIA Status: Acute (4) Lactic acid acidosis Code(s): E87.2 - ACIDOSIS Status: Resolved (5) Rhabdomyolysis Code(s): M62.82 - RHABDOMYOLYSIS Status: Acute (6) New onset seizure Code(s): R56.9 - UNSPECIFIED CONVULSIONS Status: Acute (7) Diabetes mellitus Code(s): E11.9 - TYPE 2 DIABETES MELLITUS WITHOUT COMPLICATIONS Status: Chronic (8) SIRS (systemic inflammatory response syndrome) Code(s): R65.10 - SIRS OF NON-INFECTIOUS ORIGIN W/O ACUTE ORGAN DYSFUNCTION Status: Resolved (9) 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 Per family, he is A&O x3 at baseline. It is possible that patient has chronic dementia that has gone unnoticed by family as he can hold a generally coherent conversation. - CT c/w dementia, will discuss further with family today. - Consult CM for dc planning SIRS, resolved New onset seizure - Unclear this time if patient actually seized. There has been no seizure activity since admission. Rhabdomyolysis, improved Lactic Acidosis, resolved Hyponatremia, resolved Leukocytosis, improved DM - Sugar has been controlled thus far - mild SS - ACHS accuchecks - Restart home meds Afib with rvr - Patient is on NOAC at home for afib. Will restart today and dc lovenox. - rate controlled on dilt. Consider starting beta olga for rate control at home Decubitus Ulcers, present on admission - stage 3 on right marcum and stage 2 right heel, stage 3 left heel, stage 2 sacrum, stage 2 gluteal fold - Wound care consulted Dispo: Patient is improving and may be at baseline. Ready to move to medical. <Crow Watosn - Last Filed: 03/31/18 07:52> Attending Addendum - Attending Addendum Date/Time: 03/31/18 9404 I personally evaluated the patient and discussed the management with Dr. Watson. I agree with the History, Examination, Assessment and Plan documented above with any addition or exceptions noted below. Mentation improved, negative workup thus far. Continue therapy and awaiting final results. Metabolic acidosis improving and will see how it does without the bicarb fluids. Appreciate CC support. <Farhat Arthur - Last Filed: 03/31/18 11:26>
[2018-03-31] MEDS ORDERED: Amlodipine 5 MG TAB PO SCH (09:00)
[2018-03-31] MEDS ORDERED: Laxative Of Choice PO PRN (09:09)
[2018-03-31] MEDS ORDERED: Labetalol HCl 100 MG/20 ML VIAL ONE (09:50)
[2018-03-31] MEDS: Apixaban 5 MG TAB PO SCH (09:58)
[2018-03-31] MEDS: Vit A,C & E/Lutein/Minerals Tablet PO SCH (09:58)
[2018-03-31] MEDS: metFORMIN 500 MG TAB PO SCH ×2 (09:58→16:52)
--- NOTE | 2018-03-31 09:58 | PRG ---
DATE OF SERVICE: 03/31/2018 SUBJECTIVE: This morning, is awake, alert, responsive. He is extubated. He is sitting in the [facility] without any distress. OBJECTIVE: VITAL SIGNS: Blood pressure is 144/60, his pulse is 90, respirations 16, temperature 99. GENERAL: He is awake and responsive. CHEST: No wheezing or crackles. CARDIAC: Normal S1 and S2. No gallops. ABDOMEN: Soft, no masses. LABORATORY DATA: Creatinine is 1.13. His bicarbonate is 19. White count 11,000, H and H 10 and 32, platelet count is 198. IMPRESSION: 1. Respiratory failure. 2. Sepsis syndrome. 3. Metabolic acidosis, resolved. 4. Severe deconditioning, probably underlying chronic obstructive pulmonary disease. PLAN: Discontinue bicarbonate. Can probably be transferred out of the ICU.
[2018-03-31] MEDS: Pantoprazole 40 MG VIAL IVP SCH (09:59)
[2018-03-31] MEDS: Citalopram 10 MG TAB PO SCH (10:00)
[2018-03-31] MEDS: Timolol 0.5% Ophth Soln 5 ml Bottle EA EYE SCH ×2 (10:01→22:29)
[2018-03-31] MEDS: Sodium Chloride 0.9% 1,000 ML IV SCH ×3 (10:12→22:32)
[2018-04-01 04:30] LABS: ALT (SGPT) 42 U/L (8-55); AST (SGOT) 53 U/L (5-34); Albumin 3.5 g/dL (3.4-4.8); Alkaline Phosphatase 57 U/L (40-150); Anion Gap 18 mmol/L (10-20); BUN (Urea Nitrogen) 16 mg/dL (8.4-25.7); Bilirubin, Total 1.1 mg/dL (0.2-1.2); Calc. Creatinine Clearance 65 mL/min (70-130); Calcium 8.5 mg/dL (7.8-10.44); Carbon Dioxide 21 mmol/L (23-31); Chloride 106 mmol/L (98-107); Estimated GFR-MDRD Greater than 90; Globulin 2.8 g/dL (2.4-3.5); Glucose 129 mg/dL (83-110); Potassium 3.1 mmol/L (3.5-5.1); Protein, Total 6.3 g/dL (5.8-8.1); Sodium 142 mmol/L (136-145)
[2018-04-01 04:41] LABS: Band 16 % (5-11); Hemoglobin 12.3 g/dL (14.0-18.0); Lymphocytes 2 % (21-51); MDiff Complete? YES; Mean Corpuscular HGB CONC 34.5 g/dL (32.0-36.0); Mean Corpuscular Hemoglobin 33.9 pg (27.0-31.0); Mean Platelet Volume 7.5 fL (7.4-10.4); Monocytes 5 % (0-10); Neutrophil 77 % (42-75); Platelet Count 214 thou/uL (130-400); RBC Distribution Width 13.1 % (11.5-14.5); Red Blood Cell (RBC) Count 3.64 mill/uL (4.70-6.10); White Blood Cell (WBC) Count 14.2 thou/uL (4.8-10.8)
[2018-04-01] MEDS: Labetalol HCl 100 MG/20 ML VIAL SLOW IVP PRN (05:45)
--- NOTE | 2018-04-01 08:16 | PDOC.FM ---
- Subjective Subjective: Patient found sleeping comfortably this am. Over night there was problems keeping his BP down and required IV labetalol. No new symptoms today. No new complaints. Pt denies all ROS symptoms - Objective Vital Signs & Weight: Vital Signs (12 hours) Temp Pulse Resp BP BP Pulse Ox 04/01/18 05:45 94 189/91 H 04/01/18 04:00 98.4 F 84 16 189/91 H 98 04/01/18 00:30 94 L 04/01/18 00:00 98.4 F 93 20 189/89 H 93 L 03/31/18 22:29 101 H 179/82 H 03/31/18 20:30 97 Weight Admit Weight 65.1 kg Weight 70 kg Most Recent Monitor Data Heart Rate from ECG 85 NIBP 153/96 NIBP BP-Mean 115 Respiration from ECG 22 SpO2 93 I&O: 03/31/18 04/01/18 04/02/18 06:59 06:59 06:59 Intake Total 3150 1013 Output Total 9753 451 5219 Balance 1830 58 -2625 Result Diagrams: 04/01/18 03:35 04/01/18 03:35 <Crow Watson - Last Filed: 04/01/18 08:12> - Objective Vital Signs & Weight: Vital Signs (12 hours) Temp Pulse Resp BP BP Pulse Ox 04/01/18 08:41 107 H 157/75 H 04/01/18 08:39 97.7 F 107 H 15 157/75 H 96 04/01/18 08:38 107 H 151/75 H 04/01/18 08:37 95 04/01/18 08:31 92 L 04/01/18 05:45 94 189/91 H 04/01/18 04:00 98.4 F 84 16 189/91 H 98 04/01/18 00:30 94 L 04/01/18 00:00 98.4 F 93 20 189/89 H 93 L Weight Admit Weight 65.1 kg Weight 66.763 kg Most Recent Monitor Data Heart Rate from ECG 85 NIBP 153/96 NIBP BP-Mean 115 Respiration from ECG 22 SpO2 93 I&O: 03/31/18 04/01/18 04/02/18 06:59 06:59 06:59 Intake Total 3150 1013 1000 Output Total 2540 279 5291 Balance 1830 58 -1625 Result Diagrams: 04/01/18 03:35 04/01/18 03:35 <Farhat Arthur - Last Filed: 04/01/18 10:51> Phys Exam - Physical Examination Constitutional: NAD HEENT: sclera anicteric Neck: no JVD Respiratory: clear to auscultation bilateral Cardiovascular: no significant murmur irregularly irregular Gastrointestinal: no distention Musculoskeletal: no edema Neurological: moves all 4 limbs Psychiatric: A&O x 3 Skin: no rash <Crow Watson - Last Filed: 04/01/18 08:12> Dx/Plan (1) Dementia Code(s): F03.90 - UNSPECIFIED DEMENTIA WITHOUT BEHAVIORAL DISTURBANCE Status: Suspected (2) Atrial fibrillation with RVR Code(s): I48.91 - UNSPECIFIED ATRIAL FIBRILLATION Status: Acute (3) Metabolic encephalopathy Code(s): G93.41 - METABOLIC ENCEPHALOPATHY Status: Acute (4) Hyponatremia Code(s): E87.1 - HYPO-OSMOLALITY AND HYPONATREMIA Status: Acute (5) Lactic acid acidosis Code(s): E87.2 - ACIDOSIS Status: Resolved (6) Rhabdomyolysis Code(s): M62.82 - RHABDOMYOLYSIS Status: Acute (7) New onset seizure Code(s): R56.9 - UNSPECIFIED CONVULSIONS Status: Acute (8) Diabetes mellitus Code(s): E11.9 - TYPE 2 DIABETES MELLITUS WITHOUT COMPLICATIONS Status: Chronic (9) SIRS (systemic inflammatory response syndrome) Code(s): R65.10 - SIRS OF NON-INFECTIOUS ORIGIN W/O ACUTE ORGAN DYSFUNCTION Status: Resolved (10) 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 Suspect that patient is at baseline and has previously undiagnosed dementia given CT results. - Consult CM for dc planning Leukocytosis - Increased from yesterday with left shift. No other signs/symptoms of infection. Will continue to monitor. No indication for abx at this time SIRS, resolved New onset seizure - Unclear this time if patient actually seized. There has been no seizure activity since admission. Rhabdomyolysis, improved Lactic Acidosis, resolved Hyponatremia, resolved DM - Sugar has been controlled thus far - mild SS - ACHS accuchecks - Restart home meds Afib with rvr - Patient is on NOAC at home for afib. Will restart today and dc lovenox. - rate controlled on dilt. Consider starting beta olga for rate control at home Decubitus Ulcers, present on admission - stage 3 on right marcum and stage 2 right heel, stage 3 left heel, stage 2 sacrum, stage 2 gluteal fold - Wound care consulted Dispo: Patient is improving and may be at baseline. Unlikely that pt will be able to dc for the next few days due to placement <Crow Watson - Last Filed: 04/01/18 08:12> Attending Addendum - Attending Addendum Date/Time: 04/01/18 1050 I personally evaluated the patient and discussed the management with Dr. Watson. I agree with the History, Examination, Assessment and Plan documented above with any addition or exceptions noted below. Mentation stable. No complaints. This may be his new baseline or may take penitentiary to recover. Workup for encephalopathy overall negative. BP elevated and will titrate meds today. Acidosis resolved and stable off fluids. Work on dedicated intermodal truck driver placement in coordination with daughter and CM. <Farhat Arthur - Last Filed: 04/01/18 10:51>
[2018-04-01] MEDS: Apixaban 5 MG TAB PO SCH (08:37)
[2018-04-01] MEDS: metFORMIN 500 MG TAB PO SCH ×2 (08:37→16:40)
[2018-04-01] MEDS: Citalopram 10 MG TAB PO SCH (08:37)
[2018-04-01] MEDS: Vit A,C & E/Lutein/Minerals Tablet PO SCH (08:37)
[2018-04-01] MEDS: Amlodipine 5 MG TAB PO SCH (08:38)
[2018-04-01] MEDS: Pantoprazole 40 MG VIAL IVP SCH (08:38)
[2018-04-01] MEDS: Timolol 0.5% Ophth Soln 5 ml Bottle EA EYE SCH ×2 (08:41→20:48)
--- NOTE | 2018-04-01 10:32 | PDOC.EVN ---
Event Note - Event Note Event Note: Contacted by speech pathology since patient has trouble clearing residuals & concern for aspiration. Daughter was in room at this time (MPOA) and decided wanted to continue mech soft in spite of this. Understood risk of aspiration in light of swallow test results. Her former roommate's father from aspiration while in similar situation. Speech pathologist had this convo w/ patient's daughter and contacted me regarding decision. I attempted to call daughter and left VM but was unable to reach her. Will attempt to retouch base w / her in person to confirm this is what she wishes.
[2018-04-01] MEDS ORDERED: Magnesium Oxide 400 MG TAB PO SCH (11:00)
[2018-04-01] MEDS ORDERED: Potassium Chloride 20 MEQ TAB PO SCH (11:00)
--- NOTE | 2018-04-01 15:07 | PRG ---
DATE OF SERVICE: 04/01/2018 SUBJECTIVE: Carla Carpenter is nonverbal. From what I could tell he wanted to be covered up more. Once I did that and asked him if he was okay , he nodded yes. OBJECTIVE: VITAL SIGNS: He is afebrile, heart rate is 99, respiratory rate 20, oximetry is 93 on room air, bloo d pressure 155/77. LUNGS: Clear. HEART: Regular rhythm. ABDOMEN: Soft. LABORATORY DATA: White count 14.2, hemoglobin 12.3, platelets 214. Sodium 142, potassium 3.1, chlor franc 106, bicarbonate 21, BUN 16, creatinine 0.7. IMPRESSION: 1. Dementia. 2. Atrial fibrillation. 3. Encephalopathy. 4. Rhabdomyolysis. 5. Diabetes. His blood cultures remain negative. We will continue supportive care.
[2018-04-02] MEDS ORDERED: EPINEPHrine 1 MG/10 ML Abboject SYRINGE ONE (01:00)
[2018-04-02] MEDS ORDERED: Sodium Bicarb 50 MEQ/50 ML Abboject 8.4% SYRINGE ONE (01:00)
--- NOTE | 2018-04-02 02:48 | PDOC.EVN ---
Event Note - Event Note Event Note: YASMANY JULIAN called at approximately 2am. Patient noted to be in atrial fibrillation then went into asystole. CPR was started immediately and 1 dose of epinephrine given. ROSC achieved at 2:08am after 6 minutes of CPR. Successfully intubated on 3rd attempt with 7.5 ET tube. Placement confirmed with colorimetry and CXR. Stat labs ordered. EKG pending. Transfer to ICU. Daughter, Jes, notified and at this time they wish him to remain full code. All questions answered.
[2018-04-02 03:00] LABS: ALT (SGPT) 59 U/L (8-55); AST (SGOT) 68 U/L (5-34); Albumin 3.5 g/dL (3.4-4.8); Alkaline Phosphatase 79 U/L (40-150); Anion Gap 22 mmol/L (10-20); BUN (Urea Nitrogen) 19 mg/dL (8.4-25.7); Bilirubin, Total 0.9 mg/dL (0.2-1.2); Calc. Creatinine Clearance 45 mL/min (70-130); Calcium 8.9 mg/dL (7.8-10.44); Carbon Dioxide 19 mmol/L (23-31); Chloride 108 mmol/L (98-107); Estimated GFR-MDRD 64; Glucose 249 mg/dL (83-110); Potassium 3.3 mmol/L (3.5-5.1); Protein, Total 6.5 g/dL (5.8-8.1); Sodium 146 mmol/L (136-145)
[2018-04-02 03:04] LABS: CKMB 4.3 ng/mL (0-6.6); Troponin I 0.064 ng/mL (< 0.028)
[2018-04-02] MEDS ORDERED: Ventilator Sedation Protocol 1 EACH FS SCH (03:15)
[2018-04-02] MEDS ORDERED: CCU Electrolyte Replacement 1 EACH FS SCH (03:15)
[2018-04-02] MEDS ORDERED: Lorazepam 2 MG/ML VIAL SLOW IVP PRN (03:17)
[2018-04-02] MEDS ORDERED: Propofol BOLUS 1,000 MG/100 ML VIAL IV PRN (03:17)
[2018-04-02] MEDS ORDERED: DISCONTINUE PREVIOUS NARCOTIC PAIN MEDICATIONS AND BENZODIAZEPINES FS SCH (03:17)
[2018-04-02] MEDS ORDERED: Morphine 2 MG/ML SYRINGE SLOW IVP PRN (03:17)
[2018-04-02] MEDS ORDERED: fentaNYL Citrate/PF 2,000 MCG in Sodium Chloride 0.9% 60 ML IV SCH (03:17)
[2018-04-02] MEDS ORDERED: Propofol 1,000 MG/100 ML VIAL IV PRN (03:17)
[2018-04-02] MEDS ORDERED: Fentanyl BOLUS 250 ML IVPB PRN (03:17)
[2018-04-02] MEDS ORDERED: Magnesium Oxide 400 MG TAB PO PRN ×2 (03:18)
[2018-04-02] MEDS ORDERED: Potassium Phosphate 9 MMOL in Sodium Chloride 0.9% 100 ML IVPB PRN (03:18)
[2018-04-02] MEDS ORDERED: Potassium Phosphate 15 MMOL in Sodium Chloride 0.9% 250 ML 250 ML IV PRN (03:18)
[2018-04-02] MEDS ORDERED: Magnesium 2 GM/NS 0.9% 100 ML 2 GM in Premix Bag 1 BAG IVPB PRN (03:18)
[2018-04-02] MEDS ORDERED: Potassium Chloride 40 MEQ in Sodium Chloride 0.9% 250 ML 250 ML IVPB PRN (03:18)
[2018-04-02] MEDS ORDERED: CCU ELECTROLYTE REPLACEMENT PROTOCOL FS PRN (03:18)
[2018-04-02] MEDS ORDERED: Potassium Chloride 20 MEQ TAB PO PRN (03:18)
[2018-04-02] MEDS ORDERED: Potassium Phosphate 12 MMOL in Sodium Chloride 0.9% 250 ML 250 ML IV PRN (03:18)
[2018-04-02 03:24] LABS: Band 19 % (5-11); Hemoglobin 13.2 g/dL (14.0-18.0); Lymphocytes 11 % (21-51); MDiff Complete? YES; Mean Corpuscular HGB CONC 34.3 g/dL (32.0-36.0); Mean Corpuscular Hemoglobin 34.8 pg (27.0-31.0); Mean Platelet Volume 7.4 fL (7.4-10.4); Monocytes 5 % (0-10); Neutrophil 65 % (42-75); Platelet Count 264 thou/uL (130-400); RBC Distribution Width 13.2 % (11.5-14.5); Red Blood Cell (RBC) Count 3.78 mill/uL (4.70-6.10); White Blood Cell (WBC) Count 16.8 thou/uL (4.8-10.8)
[2018-04-02 04:01] LABS: Magnesium 1.4 mg/dL (1.6-2.6)
[2018-04-02] MEDS: Potassium Chloride 40 MEQ in Premix Bag 1 BAG IVPB PRN (04:01)
[2018-04-02] MEDS ORDERED: Sodium Chloride 0.9% 1,000 ML IV SCH (04:15)
--- NOTE | 2018-04-02 05:50 | PDOC.EVN ---
Event Note - Event Note Event Note: Paged at ~05:10 due to large air pocket that was evident on exam after patient moved rooms. Heart rate was in the 90s in atrial fibrillation and BP elevated at 188/108. Crepitus palpated in right axillary area consistent with subcutaneous emphysema. Stat CXR ordered to r/o a possible pneumothorax and showed no signs of tracheal deviation or pneumo. Did show a small amount of subcutaneous emphysema in R axilla. Official radiology read pending. RT discontinued PEEP.
--- NOTE | 2018-04-02 05:50 | PDOC.FM ---
- Subjective Subjective: Patient intubated this AM. He was opening his eyes and tracking, but is moderately sedated and minimally responsive. Patient with jerking movements. No family by bedside. - Objective MAR Reviewed: Yes Vital Signs & Weight: Vital Signs (12 hours) Temp Pulse Resp BP BP Pulse Ox 04/02/18 04:00 97.3 F L 23 H 04/02/18 03:00 100 04/02/18 02:48 94 87/51 L 04/02/18 00:10 94 L 04/01/18 23:32 97.6 F 103 H 20 178/106 H 93 L 04/01/18 20:48 124 H 180/86 H 04/01/18 20:20 92 L 04/01/18 19:55 99.6 F 115 H 18 180/86 H 92 L Weight Admit Weight 65.1 kg Weight 64.5 kg Most Recent Monitor Data Heart Rate from ECG 107 NIBP 188/108 NIBP BP-Mean 134 Respiration from ECG 19 SpO2 100 I&O: 03/31/18 04/01/18 04/02/18 06:59 06:59 06:59 Intake Total 3150 1013 1000 Output Total 4638 740 3200 Balance 1830 57 -6229 Result Diagrams: 04/02/18 02:21 04/02/18 02:21 EKG Reviewed by me: Yes Radiology Reviewed by me: Yes <Jeni Smith - Last Filed: 04/02/18 09:39> - Objective Vital Signs & Weight: Vital Signs (12 hours) Temp Pulse Resp BP BP Pulse Ox 04/02/18 09:24 101 H 162/93 H 04/02/18 09:19 101 H 162/93 H 04/02/18 07:43 101 H 121/64 100 04/02/18 07:00 98 F 04/02/18 06:00 17 04/02/18 04:00 97.3 F L 23 H 04/02/18 03:00 100 04/02/18 02:48 94 87/51 L 04/02/18 00:10 94 L 04/01/18 23:32 97.6 F 103 H 20 178/106 H 93 L Weight Admit Weight 65.1 kg Weight 64.5 kg Most Recent Monitor Data Heart Rate from ECG 96 NIBP 121/64 NIBP BP-Mean 83 Respiration from ECG 15 SpO2 100 I&O: 04/01/18 04/02/18 04/03/18 06:59 06:59 06:59 Intake Total 1013 2518 Output Total 955 4365 50 Balance 58 -1847 -50 Result Diagrams: 04/02/18 02:21 04/02/18 02:21 <SandhyaFarhat R - Last Filed: 04/02/18 10:13> Phys Exam - Physical Examination Intubated and mildly sedated on ventilator HEENT: moist MMs Respiratory: no wheezing Tachycardic Gastrointestinal: soft Musculoskeletal: no edema, pulses present Opening eyes, tracking, not responding to commands Skin: cap refill <2 seconds <Jeni Smith - Last Filed: 04/02/18 09:39> Dx/Plan (1) Cardiac arrest with successful resuscitation Code(s): I46.9 - CARDIAC ARREST, CAUSE UNSPECIFIED Status: Acute (2) Altered mental state Code(s): R41.82 - ALTERED MENTAL STATUS, UNSPECIFIED Status: Acute (3) Metabolic encephalopathy Code(s): G93.41 - METABOLIC ENCEPHALOPATHY Status: Acute (4) Atrial fibrillation with RVR Code(s): I48.91 - UNSPECIFIED ATRIAL FIBRILLATION Status: Resolved (5) Rhabdomyolysis Code(s): M62.82 - RHABDOMYOLYSIS Status: Acute (6) 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 S/p 1mg epinephrine. Successful intubation after 3rd attempt - Family contacted; they have collectively decided for patient to be DNR - Troponin mildly elevated post-resuscitation - On telemetry, looks like prolonged pause; may be sick sinus syndrome, consider cardiology consult should patient recover Metabolic encephalopathy - Suspect new baseline for patient with underlying dementia that has been previously undiagnosed - Replace electrolytes PRN (K, Mg low this AM) - Patient s/p cardiac arrest with ROSC. Currently intubated. Patient's family has decided to make patient DNR. Will need to have family discussion regarding goals of care. Leukocytosis - Increased from yesterday with left shift worsening. - Will continue to monitor. - CXR does show right lung infiltrates - Procalcitonin 0.18 this AM which is down from 0.22 - Will hold off on antibiotics Rhabdomyolysis - Improved Lactic Acidosis - 8 after code, repeat LA pending - IVF - Continue to monitor Hyponatremia, resolved DM type II - BG this AM 249 - Mild SS - ACHS accuchecks - Restart home meds - Adjust medications as necessary Afib with RVR - Patient is on NOAC at home for afib - Metoprolol started yesterday; patient off of dilt drip - Patient went into A-fib and then asystole early this AM. Decubitus Ulcers, present on admission - stage 3 on right marcum and stage 2 right heel, stage 3 left heel, stage 2 sacrum, stage 2 gluteal fold - Wound care consulted Dispo: Patient with decline this AM. Cardiac arrest s/p ROSC. Family has decided to make patient DNR. Will need to have family discussion regarding goals of care. <Jeni Smith - Last Filed: 04/02/18 09:39> Attending Addendum - Attending Addendum Date/Time: 04/02/18 1009 I personally evaluated the patient and discussed the management with Dr. Smith. I agree with the History, Examination, Assessment and Plan documented above with any addition or exceptions noted below. Patient seen at bedside at 0715 this morning. His vital signs are more stable than a few hours ago when he was s/p ROSC. Lactate has downtrended and was 2/2 decreased perfusion. His HR continues to be low 100s in afib, no further pauses. Continue Metorprolol. He has begun to have some rhythmic "jerking" recently but no lateral eye deviation or fixed gaze defect. His pupils are minimally reactive but he does have gag reflex and occasional spontaneous breaths. Dr. Bojorquez discuss with the family overnight and the patient is now DNR as they report he has been for some time but they were unable to locate the paperwork to confirm this. They do not wish to resuscitate him again if he should code again. He does have increasing subcutaneous emphysema through the morning that is likely due to combination of barotrauma and trauma from CPR earlier this morning. This has been discussed with Pulm and we are monitoring with serial CXR but otherwise deferring on more aggressive mgmt at the current time. Will monitor for now and see how his conditions evolves over the coming hours. <Farhat Arthur R - Last Filed: 04/02/18 10:13>
[2018-04-02 07:08] LABS: CKMB 11.3 ng/mL (0-6.6)
[2018-04-02 08:11] LABS: Actual Bicarbonate (HCO3a) 24.2 mEq/L (22-28); Base Excess (BEa) 2.2 mEq/L (-2.0 to +3.0); CO2 Tension 29.6 mmHg (35.0-45.0); Carboxyhemoglobin (COHb) 0.3 gm% (0.0-3.0); Hemoglobin (Hb) 11.7 g/dL (14.0-18.0); O2 Tension (PaO2) 164.6 mmHg (> 60.0); pH, Arterial 7.53 (7.35-7.45)
[2018-04-02 08:20] LABS: Puncture Site RR
--- NOTE | 2018-04-02 08:37 | PDOC.EVN ---
Event Note - Event Note Event Note: Discussed code status with daughter and son, Jes and Magdi, who both state that patient would wish to be DNR at this time. He has signed DNR at home which they have been unable to locate. We discussed full implications of DNR and they do not with for any further resuscitation should code occur again.
[2018-04-02] MEDS: Pantoprazole 40 MG VIAL IVP SCH (09:19)
[2018-04-02] MEDS: Amlodipine 5 MG TAB PO SCH (09:19)
[2018-04-02] MEDS: Timolol 0.5% Ophth Soln 5 ml Bottle EA EYE SCH ×2 (09:24→20:02)
[2018-04-02 09:45] LABS: Lactic Acid 1.9 mmol/L (0.5-2.2)
--- NOTE | 2018-04-02 09:49 | RAD ---
CHEST 1 VIEW: HISTORY: Cardiac arrest. COMPARISON: Radiograph of 03/28/2018. FINDINGS: The patient is intubated. Endotracheal tube tip is 1.8 cm from the sonal. There is a small right a pical pneumothorax. Defibrillator leads over the left hemithorax limit evaluation for pneumothorax. Central venous catheter is placed with tip at the cavoatrial junction. There are bibasilar airspace opacities. Small volume right hemithorax subcutaneous emphysema. IMPRESSION: 1. Small right apical pneumothorax. 2. Likely a prominent skin fold along the left hemithorax and less likely a basilar pneumothorax. 3. Airspace opacities of both lung bases may be contusions. POS: [facility]
[2018-04-02 09:55] LABS: Troponin I 0.232 ng/mL (< 0.028)
--- NOTE | 2018-04-02 10:37 | RAD ---
CHEST 1 VIEW: HISTORY: Air pockets. COMPARISON: Radiograph same day. FINDINGS: Right apical pneumothorax is similar. Subcutaneous emphysema has worsened. There appears to be some suture along the right lateral hemithorax versus some wire that is outside o f the patient. This is not seen on the prior examination. Subtle leftward mediastinal shift. Endotracheal tube tip is in good position at the level of the cla vicles. Left subclavian catheter tip sits at the lower SVC. IMPRESSION: 1. Interval enlarging pneumothorax with worsening subcutaneous emphysema. 2. Subtle left mediastinal shift. The nurse was notified of the findings via telephone 8:23 a.m. CODE CR POS: [facility]
[2018-04-02] MEDS: Citalopram 10 MG TAB PO SCH (11:00)
--- NOTE | 2018-04-02 11:00 | PRG ---
DATE OF SERVICE: 04/02/2018 SUBJECTIVE: Mr. Carpenter had a period of asystole this morning that led to CPR and resuscitation. He is intubated now. He opens his eyes. He is not following commands. I am told he was not down for v donald long. OBJECTIVE: VITAL SIGNS: His heart rate is 101, blood pressure 162/93, respiratory rates per mechanical ventilat ion. HEENT: Sclerae are anicteric. His pupils were equal. CHEST: Remarkable for subcu areas distant breath sounds. HEART: Regular rhythm. ABDOMEN: Soft. EXTREMITIES: Without edema. LABORATORY DATA: White count 16.8, hemoglobin 13.2, platelets 264,000. Sodium 146, potassium 3.3, c hloride 108, bicarb 19, BUN 19, creatinine 1.09. Blood gas, pH of 7.53, CO2 of 29, PO2 of 154. IMAGING: Chest radiograph shows small apical pneumothorax on the right. He has calcified pleura, wh ich defined the edge of the lung. IMPRESSION: 1. Pneumothorax related to CPR. 2. 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 3. Advanced age. 4. Do not resuscitate per family. His prognosis is guarded. Family does not want heroic measures or aggressive care. I do think it is reasonable to repeat a chest radiograph. If there is progression of the pneumothorax, place a small catheter. If there is not, then we will continue to observe him. CRITICAL CARE TIME: 30 minutes.
--- NOTE | 2018-04-02 11:03 | PRG ---
DATE OF SERVICE: 04/02/2018 SUBJECTIVE: Mr. Carpenter is reevaluated after his chest radiograph. His chest radiograph shows no pro gression of his pneumothorax. He has been having some rhythmic movements in bed when his propofol wa s turned off. Yesterday, he was essentially aphasic and nonverbal when I talked to him, but his daug hter is in the room, saying that she had a conversation with him yesterday. There is a report accord ing to the daughter that he was seizing at home prior to his admission. I would wonder if some of his intermittent neurological issues are explained by seizures. Unfortunat duane, we have no way to do EEGs over the weekend at this hospital. I have recommended that we loaded him with Dilantin for now. We will also switch him to Precedex and take him off propofol to see if w e can get better neurological exams out of him.
[2018-04-02] MEDS: Lactated Ringer's 1,000 ML IV SCH ×2 (11:16→19:27)
[2018-04-02] MEDS: metFORMIN 500 MG TAB PO SCH ×2 (11:25→17:45)
[2018-04-02] MEDS: Vit A,C & E/Lutein/Minerals Tablet PO SCH (11:37)
[2018-04-02] MEDS: Apixaban 5 MG TAB PO SCH (11:37)
--- NOTE | 2018-04-02 12:39 | RAD ---
CHEST 1 VIEW: HISTORY: Pneumothorax. COMPARISON: Radiograph same day. FINDINGS: A right-side pneumothorax is similar with the apex projecting over the right 3rd and 4th posterior r ibs. There is lateral extension to the pneumothorax to the level of the lateral 7th rib. The subcut aneous emphysema is increasing. IMPRESSION: Similar size of the right-sided pneumothorax. [place] [facility] [place]
[2018-04-02 14:49] VITALS: BMI 22.2
--- NOTE | 2018-04-02 15:55 | RAD ---
CHEST ONE VIEW 04/02/18 HISTORY: Pneumothorax. COMPARISON: Radiograph same day. FINDINGS: Similar appearance right sided pneumothorax. Right heart border is to the left of the spinal column. Enteric tube tip below the diaphragm and out of the field of view. Central venous catheter is similar . Similar subcutaneous emphysema. IMPRESSION: Similar right sided pneumothorax. POS: [facility]
[2018-04-02] MEDS: Fosphenytoin Sodium 200 MG in Sodium Chloride 0.9% 50 ML IVPB SCH (20:00)
[2018-04-03] MEDS: Lactated Ringer's 1,000 ML IV SCH ×4 (01:27→19:43)
[2018-04-03 04:01] LABS: ALT (SGPT) 39 U/L (8-55); AST (SGOT) 41 U/L (5-34); Albumin 2.5 g/dL (3.4-4.8); Alkaline Phosphatase 48 U/L (40-150); Anion Gap 10 mmol/L (10-20); BUN (Urea Nitrogen) 24 mg/dL (8.4-25.7); Bilirubin, Total 0.7 mg/dL (0.2-1.2); Calc. Creatinine Clearance 47 mL/min (70-130); Calcium 7.9 mg/dL (7.8-10.44); Carbon Dioxide 28 mmol/L (23-31); Chloride 110 mmol/L (98-107); Estimated GFR-MDRD 70; Globulin 2.2 g/dL (2.4-3.5); Glucose 139 mg/dL (83-110); Potassium 2.8 mmol/L (3.5-5.1); Protein, Total 4.7 g/dL (5.8-8.1); Sodium 145 mmol/L (136-145)
[2018-04-03 04:11] LABS: Band 5 % (5-11); Hemoglobin 10.1 g/dL (14.0-18.0); Lymphocytes 8 % (21-51); MDiff Complete? YES; Mean Corpuscular HGB CONC 33.8 g/dL (32.0-36.0); Mean Corpuscular Hemoglobin 33.8 pg (27.0-31.0); Monocytes 8 % (0-10); Neutrophil 78 % (42-75); Platelet Count 176 thou/uL (130-400); Reactive Lymphocytes 1 % (0-10); Red Blood Cell (RBC) Count 2.99 mill/uL (4.70-6.10); White Blood Cell (WBC) Count 12.4 thou/uL (4.8-10.8)
[2018-04-03] MEDS: Potassium Chloride 40 MEQ in Premix Bag 1 BAG IVPB PRN (04:42)
--- NOTE | 2018-04-03 06:15 | PDOC.FM ---
- Subjective Subjective: Patient currently intubated and on precedex. Some rhythmic movements noted in upper extremities today. No family at bedside this AM. Patient currently on 4 of PEEP. - Objective MAR Reviewed: Yes Vital Signs & Weight: Vital Signs (12 hours) Temp Pulse Resp Pulse Ox 04/03/18 06:00 15 04/03/18 04:00 14 04/03/18 03:00 98.5 F 04/03/18 02:33 86 04/03/18 02:00 14 04/03/18 00:00 13 04/02/18 23:00 98.6 F 04/02/18 22:27 88 04/02/18 22:00 19 04/02/18 20:02 104 H 04/02/18 20:00 21 H 04/02/18 19:40 100 04/02/18 19:00 99.4 F 04/02/18 18:31 100 Weight Admit Weight 65.1 kg Weight 65.8 kg Most Recent Monitor Data Heart Rate from ECG 91 NIBP 84/52 NIBP BP-Mean 62 Respiration from ECG 15 SpO2 100 I&O: 04/01/18 04/02/18 04/03/18 06:59 06:59 06:59 Intake Total 1013 2518 3058.5 Output Total 955 4365 1750 Balance 58 -1847 1308.5 Result Diagrams: 04/03/18 03:15 04/03/18 03:15 EKG Reviewed by me: No Radiology Reviewed by me: Yes <Jeni Smith - Last Filed: 04/03/18 09:30> - Objective Vital Signs & Weight: Vital Signs (12 hours) Temp Pulse Resp 04/03/18 08:11 86 04/03/18 08:05 113 H 04/03/18 08:00 21 H 04/03/18 07:00 98.4 F 04/03/18 06:00 15 04/03/18 04:00 14 04/03/18 03:00 98.5 F 04/03/18 02:33 86 04/03/18 02:00 14 04/03/18 00:00 13 04/02/18 23:00 98.6 F 04/02/18 22:27 88 04/02/18 22:00 19 Weight Admit Weight 65.1 kg Weight 65.8 kg Most Recent Monitor Data Heart Rate from ECG 108 NIBP 145/82 NIBP BP-Mean 103 Respiration from ECG 22 SpO2 100 I&O: 04/02/18 04/03/18 04/04/18 06:59 06:59 06:59 Intake Total 2518 3058.5 Output Total 4365 1750 80 Balance -1847 1308.5 -80 Result Diagrams: 04/03/18 03:15 04/03/18 03:15 <Farhat Arthur - Last Filed: 04/03/18 09:53> Phys Exam - Physical Examination Mechanical ventilation and sedation with precedex HEENT: moist MMs Respiratory: no wheezing Cardiovascular: RRR Gastrointestinal: soft, no distention, positive bowel sounds Musculoskeletal: no edema Mechanical ventilation with sedation Skin: cap refill <2 seconds Deviation from normal: Multiple decubitus ulcers <Jeni Smith - Last Filed: 04/03/18 09:30> Dx/Plan (1) Cardiac arrest with successful resuscitation Code(s): I46.9 - CARDIAC ARREST, CAUSE UNSPECIFIED Status: Acute (2) Altered mental state Code(s): R41.82 - ALTERED MENTAL STATUS, UNSPECIFIED Status: Acute (3) Metabolic encephalopathy Code(s): G93.41 - METABOLIC ENCEPHALOPATHY Status: Acute (4) Atrial fibrillation with RVR Code(s): I48.91 - UNSPECIFIED ATRIAL FIBRILLATION Status: Resolved (5) Rhabdomyolysis Code(s): M62.82 - RHABDOMYOLYSIS Status: Acute (6) 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 S/p 1mg epinephrine. Successful intubation after 3rd attempt - Family contacted; they have collectively decided for patient to be DNR - Troponin elevated post-resuscitation. No EKG changes to suggest MD. Possibly tachybradysyndrome. - On telemetry, looks like prolonged pause; may be sick sinus syndrome vs tachybrady syndrome, consider cardiology consult should patient recover Left-sided apical pneumothorax - Stable - Continue to monitor - Likely 2/2 CPR Metabolic encephalopathy - Suspect new baseline for patient with underlying dementia that has been previously undiagnosed - Replace electrolytes PRN; K low this AM. Repeat BMP this afternoon. Check Mg level. - Patient s/p cardiac arrest with ROSC. Currently intubated. Patient's family has decided to make patient DNR. Will need to have family discussion regarding goals of care. - Possibly related to new onset seizures. Patient has been started on Dilantin. Leukocytosis, improved - Will continue to monitor. - Will hold off on antibiotics. Rhabdomyolysis - Improved Lactic Acidosis, resolved Hyponatremia, resolved DM type II - BG this AM 139; keep below 180 - Mild SSI - ACHS accuchecks - Adjust medications as necessary Afib with RVR, resolved - Patient is on NOAC at home for afib - Metoprolol started; patient off of dilt drip - Currently rate controlled Decubitus Ulcers, present on admission - stage 3 on right marcum and stage 2 right heel, stage 3 left heel, stage 2 sacrum, stage 2 gluteal fold - Wound care consulted Dispo: Guarded. Cardiac arrest s/p ROSC on 04/02. Family has decided to make patient DNR. Will need to have family discussion regarding goals of care. Plan for possible extubation today per RT. <Jeni Smith - Last Filed: 04/03/18 09:30> Attending Addendum - Attending Addendum Date/Time: 04/03/18 3608 I personally evaluated the patient and discussed the management with Dr. Smith. I agree with the History, Examination, Assessment and Plan documented above with any addition or exceptions noted below. Patient making some spontaneous eye opening and movements this morning which is improvement. He continues to have some mild rhythmic jerking that may signify either hypoxic injury or related to this potential seizure activity. Telemetry stable. Anticipate SBT and possible extubation by Pulm this AM. PTX stable on repeat CXR and likely 2/2 CPR trauma. Subcu air stable. Potassium low, will replete and recheck. UOP ok. Discuss with family prognosis and next steps pending successful extubation. <Farhat Arthur R - Last Filed: 04/03/18 09:53>
--- NOTE | 2018-04-03 06:49 | PRG ---
DATE OF SERVICE: 04/02/2018 TIME OF NOTE: 03:30. SUBJECTIVE: I was called by Dr. Kavya Bojorquez at approximately 2:00 a.m. reporting patient had a code b lue due to asystole. At approximately 2:15, I was present at bedside. In the interim, CPR had been ongoing for approximately 8 minutes with one round of epinephrine. No shocks were delivered. The luciano figueredo had ROSC by the time of my arrival and Dr. Bojorquez was placing an ET tube at that time. Per chantel sing report, the patient upon last final check was stable and doing well. At approximately 2:00 a.m. , telemetry strip unchanged from atrial fibrillation of which he has been in the entire time he has b een in the hospital to asystole. Melissa soto was called at that time. After ROSC was achieved, lis wan studies obtained. The patient transferred to the ICU. On initial review of the patient's telemetry strips leading up to the code blue event, it did appear that he was having some possible new ST segment depressions in a few minutes leading up to the asysto le. However, a 12-lead EKG obtained after ROSC did not continue to show this. LABORATORY DATA: Obtained during the CODE, basic metabolic panel showed sodium 146, potassium 3.3, c hloride 108, bicarbonate 19, BUN 19, creatinine 1.09, glucose 249, lactic acid was 8.2, which was an increase from a check on 03/28/2018 of 2.2. Cardiac profile showed CK-MB 4.3 and a troponin of 0.064 which was also mild increase from previously check troponin on 03/28/2018 at 0.012. After the patie nt was transferred to the ICU and placed on ventilator, an ABG was obtained which showed a pH 7.49, p CO2 of 25.4, pO2 of 62.3, bicarbonate 19, base deficit of 2. Chest x-ray obtained after transfer to the ICU and intubation showed the tube to be placed successfully just above the sonal. No new airsp vandana densities noted on my review of the image. ASSESSMENT AND PLAN: In light of the patient's decline as well as the low blood pressures after he s tabilized in the ICU, patient was bolused 1 liter of fluids which seemed to be needed based off of hi s mild hypernatremia on repeat lab testing. The patient has been transferred to the ICU. Pulmonology has been contacted. The patient who was re cently here for presumed metabolic encephalopathy in the setting of chronic dementia who is doing wel l now intubated and sedated after asystole with return of spontaneous circulation after code blue vlad nt overnight. Continue to monitor closely. Family is en route and will provide updates. Dr. Bojorquez did speak with the family over the phone who reported that the patient possibly has a signed DNR, bu t they wished to have patient remain FULL CODE at this time which he has been throughout the hospital ization. We will continue to provide updates and address code status again once they arrive. Sixty minutes critical care time provided in the resuscitation and stabilization of this patient.
[2018-04-03] MEDS: Pantoprazole 40 MG VIAL IVP SCH (08:11)
[2018-04-03] MEDS: Amlodipine 5 MG TAB PO SCH (08:11)
[2018-04-03] MEDS: metFORMIN 500 MG TAB PO SCH ×2 (08:11→16:23)
[2018-04-03] MEDS: Timolol 0.5% Ophth Soln 5 ml Bottle EA EYE SCH ×2 (08:12→19:48)
[2018-04-03] MEDS: Citalopram 10 MG TAB PO SCH (08:13)
[2018-04-03] MEDS: Apixaban 5 MG TAB PO SCH (08:15)
[2018-04-03] MEDS: Vit A,C & E/Lutein/Minerals Tablet PO SCH (08:15)
[2018-04-03] MEDS: Fosphenytoin Sodium 200 MG in Sodium Chloride 0.9% 50 ML IVPB SCH ×2 (08:22→19:44)
[2018-04-03 08:25] LABS: Actual Bicarbonate (HCO3a) 26.2 mEq/L (22-28); Base Excess (BEa) 3.9 mEq/L (-2.0 to +3.0); CO2 Tension 31.4 mmHg (35.0-45.0); Calcium, Ionized 1.11 mmol/L (1.12-1.30); Carboxyhemoglobin (COHb) 0.5 gm% (0.0-3.0); Hemoglobin (Hb) 11.1 g/dL (14.0-18.0); O2 Tension (PaO2) 82.4 mmHg (> 60.0); Potassium - ABG Lab 3.29 mmol/L (3.70-5.30); pH, Arterial 7.54 (7.35-7.45)
[2018-04-03 08:26] LABS: Puncture Site RR
[2018-04-03] MEDS ORDERED: Magnesium Sulfate 2 GM in Sodium Chloride 0.9% 100 ML IVPB SCH (09:45)
[2018-04-03] MEDS ORDERED: Magnesium 2 GM/50 ML 2 GM in Premix Bag 1 BAG IVPB SCH (10:00)
[2018-04-03] MEDS ORDERED: Haloperidol Lactate 5 MG/ML VIAL IM PRN (12:35)
--- NOTE | 2018-04-03 13:01 | RAD ---
CHEST 1 VIEW: HISTORY: Pneumothorax. COMPARISON: Radiograph prior day. FINDINGS: The right side pneumothorax has decreased with the apex with the 2nd/3rd posterior rib interspace. P ulmonary edema right lung. There is subcutaneous emphysema along both hemithoraces, similar. The calcified pleural plaques over the left lung apex are similar. IMPRESSION: 1. Slight size decrease of the right side pneumothorax. 2. Satisfactory position of the endotracheal, enteric, and the central venous catheter, although the enteric tube can be advanced 2-3 cm as the side port is just at the GE junction. POS: [facility]
[2018-04-03 14:19] LABS: Anion Gap 13 mmol/L (10-20); BUN (Urea Nitrogen) 25 mg/dL (8.4-25.7); Calc. Creatinine Clearance 55 mL/min (70-130); Calcium 8.3 mg/dL (7.8-10.44); Carbon Dioxide 25 mmol/L (23-31); Chloride 110 mmol/L (98-107); Estimated GFR-MDRD 82; Glucose 145 mg/dL (83-110); Magnesium 1.8 mg/dL (1.6-2.6); Potassium 3.2 mmol/L (3.5-5.1); Sodium 145 mmol/L (136-145)
[2018-04-03] MEDS ORDERED: Scopolamine 1.5 mg/72 hour Patch TOP SCH (15:00)
--- NOTE | 2018-04-03 21:24 | PRG ---
DATE OF SERVICE: 04/03/2018 SUBJECTIVE: Mr. Carpenter was fidgety even with a Precedex drip going on. He is moving all of his extremities. He had no activity that resembled seizures today , although he was having this yesterday. OBJECTIVE: VITALS: His blood pressure is 133/85, heart rate is 107, respiratory rates in the teens, oximetry is 100%. HEAD AND NECK: Exam was unchanged. LUNGS: Clear. After suctioning, he does have some thick secretions. HEART: Regular rhythm. ABDOMEN: Soft and nontender. EXTREMITIES: Without asymmetry or edema. LABORATORY DATA: Rhythm strip shows atrial fibrillation. White count 12.4, hemoglobin 10.1, platelets 176. Sodium 145, potassium 3.2, chloride 110, bicarbonate 25, BUN 25, creatinine 0.88. IMPRESSION: 1. Sinus arrest after atrial fibrillation ? tachybrady syndrome, has had no recurrence of this. Cardiology probably should be consulted at some point. 2. ? seizure activity explaining his waxing and waning mental status prior to intubation. When he was seen by me on Wednesday, he was nonverbal. I would wonder if he was postictal at that time. He certainly had activity yesterday that resemble seizures. I talked to the daughter by phone today. They want him to be extubated. They do not want him reintubated. We successfully extubated him. He has had no respiratory distress post-extubation. A scopolamine patch has been added for secretions. He has small apical pneumothorax after CPR. Chest radiograph today showed improvement of the pneumothorax. He has not required chest tube placement and likely will not. He will remain in the critical care unit for now. Other problems include advanced age and DO NOT RESUSCITATE status. We will continue with supportive care. He probably should have an EEG done tomorrow. CRITICAL CARE TIME: 30 minutes. IGOR
--- NOTE | 2018-04-03 21:59 | EKG ---
Test Reason : Blood Pressure : / mmHG Vent. Rate : 124 BPM Atrial Rate : 125 BPM P-R Int : 000 ms QRS Dur : 068 ms QT Int : 318 ms P-R-T Axes : 000 062 111 degrees QTc Int : 456 ms Atrial fibrillation with rapid ventricular response with premature ventricular or aberrantly conducte d complexes Nonspecific ST and T wave abnormality , probably digitalis effect Abnormal ECG When compared with ECG of 28-MAR-2018 17:41, (Unconfirmed) ST now depressed in Anterior leads Confirmed by COURTNEY NARVAEZ (2) on 04/03/2018 9:58:41 PM Referred By: BEATRIZ Confirmed By:COURTNEY NARVAEZ
[2018-04-04] MEDS: Labetalol HCl 100 MG/20 ML VIAL SLOW IVP PRN (03:10)
[2018-04-04] MEDS: Lactated Ringer's 1,000 ML IV SCH (03:14)
[2018-04-04 05:06] LABS: Band 15 % (5-11); Hemoglobin 11.2 g/dL (14.0-18.0); Lymphocytes 7 % (21-51); MDiff Complete? YES; Mean Corpuscular HGB CONC 33.9 g/dL (32.0-36.0); Mean Corpuscular Hemoglobin 34.1 pg (27.0-31.0); Mean Platelet Volume 7.5 fL (7.4-10.4); Monocytes 3 % (0-10); Neutrophil 75 % (42-75); Platelet Count 219 thou/uL (130-400); RBC Distribution Width 13.2 % (11.5-14.5); Red Blood Cell (RBC) Count 3.28 mill/uL (4.70-6.10)
[2018-04-04 05:15] LABS: ALT (SGPT) 47 U/L (8-55); AST (SGOT) 49 U/L (5-34); Alkaline Phosphatase 64 U/L (40-150); Anion Gap 14 mmol/L (10-20); BUN (Urea Nitrogen) 20 mg/dL (8.4-25.7); Bilirubin, Total 0.9 mg/dL (0.2-1.2); Calc. Creatinine Clearance 62 mL/min (70-130); Calcium 8.6 mg/dL (7.8-10.44); Carbon Dioxide 27 mmol/L (23-31); Chloride 108 mmol/L (98-107); Estimated GFR-MDRD Greater than 90; Globulin 2.6 g/dL (2.4-3.5); Glucose 131 mg/dL (83-110); Protein, Total 5.6 g/dL (5.8-8.1); Sodium 146 mmol/L (136-145)
[2018-04-04 05:20] LABS: Potassium 2.9 mmol/L (3.5-5.1)
[2018-04-04] MEDS: Potassium Chloride 40 MEQ in Premix Bag 1 BAG IVPB PRN (05:33)
[2018-04-04] MEDS ORDERED: Potassium Chloride 40 MEQ in Premix Bag 1 BAG IVPB SCH ×2 (06:15→15:45)
[2018-04-04] MEDS: Sodium Chloride 0.45% 1,000 ML IV SCH ×2 (06:32→17:22)
--- NOTE | 2018-04-04 06:34 | PDOC.FM ---
- Subjective Subjective: Patient successfully extubated yesterday. Today found laying in bed, non verbal and will not follow commands. There were no acute events over night. - Objective MAR Reviewed: Yes Vital Signs & Weight: Vital Signs (12 hours) Temp Pulse BP Pulse Ox 04/04/18 05:00 97.5 F L 04/04/18 03:10 104 H 177/130 H 04/04/18 00:00 97.6 F 04/03/18 20:00 98.0 F 100 04/03/18 19:48 87 132/68 Weight Admit Weight 65.1 kg Weight 62.7 kg Most Recent Monitor Data Heart Rate from ECG 97 NIBP 154/86 NIBP BP-Mean 108 Respiration from ECG 18 SpO2 96 I&O: 04/02/18 04/03/18 04/04/18 06:59 06:59 06:59 Intake Total 2518 3058.5 3357.3 Output Total 4365 1750 2065 Balance -1847 1308.5 1292.3 Result Diagrams: 04/04/18 04:20 04/04/18 04:20 Additional Labs: Mg 1.3 <Crow Watson - Last Filed: 04/04/18 06:32> - Objective Vital Signs & Weight: Vital Signs (12 hours) Temp Pulse BP 04/04/18 10:11 88 132/68 04/04/18 08:00 98.1 F 04/04/18 05:00 97.5 F L 04/04/18 03:10 104 H 177/130 H 04/04/18 00:00 97.6 F Weight Admit Weight 65.1 kg Weight 62.7 kg Most Recent Monitor Data Heart Rate from ECG 94 NIBP 132/68 NIBP BP-Mean 89 Respiration from ECG 16 SpO2 100 I&O: 04/03/18 04/04/18 04/05/18 06:59 06:59 06:59 Intake Total 3058.5 3357.3 60 Output Total 1750 2065 240 Balance 1308.5 1292.3 -180 Result Diagrams: 04/04/18 04:20 04/04/18 04:20 <Jefferson Reynolds - Last Filed: 04/04/18 10:23> Phys Exam - Physical Examination Constitutional: NAD HEENT: moist MMs, sclera anicteric Neck: no JVD Respiratory: clear to auscultation bilateral Cardiovascular: no significant murmur irregularly irregular Gastrointestinal: soft, non-tender, no distention, positive bowel sounds Musculoskeletal: no edema Unable to participate in neuro exam. PERRLA, withdraws from pain Deviation from normal: Patient does not respond to questions Skin: no rash <Crow Watson - Last Filed: 04/04/18 06:32> Dx/Plan (1) Cardiac arrest with successful resuscitation Code(s): I46.9 - CARDIAC ARREST, CAUSE UNSPECIFIED Status: Acute (2) Altered mental state Code(s): R41.82 - ALTERED MENTAL STATUS, UNSPECIFIED Status: Acute (3) Dementia Code(s): F03.90 - UNSPECIFIED DEMENTIA WITHOUT BEHAVIORAL DISTURBANCE Status: Suspected (4) Atrial fibrillation with RVR Code(s): I48.91 - UNSPECIFIED ATRIAL FIBRILLATION Status: Acute (5) Metabolic encephalopathy Code(s): G93.41 - METABOLIC ENCEPHALOPATHY Status: Acute (6) Hyponatremia Code(s): E87.1 - HYPO-OSMOLALITY AND HYPONATREMIA Status: Resolved (7) Lactic acid acidosis Code(s): E87.2 - ACIDOSIS Status: Resolved (8) Rhabdomyolysis Code(s): M62.82 - RHABDOMYOLYSIS Status: Resolved (9) New onset seizure Code(s): R56.9 - UNSPECIFIED CONVULSIONS Status: Acute (10) Diabetes mellitus Code(s): E11.9 - TYPE 2 DIABETES MELLITUS WITHOUT COMPLICATIONS Status: Chronic (11) SIRS (systemic inflammatory response syndrome) Code(s): R65.10 - SIRS OF NON-INFECTIOUS ORIGIN W/O ACUTE ORGAN DYSFUNCTION Status: Resolved (12) 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 S/p 1mg epinephrine. Successful intubation after 3rd attempt, no extubated - possible sick sinus syndrome vs tachybrady syndrome, consider cardiology consult should patient recover - Patient has since been made DNR. Left-sided apical pneumothorax - Stable - Continue to monitor, repeat CXR today - Likely 2/2 CPR Metabolic encephalopathy - Patient will not respond to questions, though will open his eyes and look at the speaker. This has been his state since extubation. Though there is likely an underlying previously undiagnosed dementia, this is an acute change from what appeared to be his baseline prior to cardiac arrest. - Replace electrolytes PRN; K and Mg low this AM. Repeat BMP this afternoon - Patient is also hypernatremic with a free water deficit of 1.3 L. Will change IVF to 1/2 NS. Recheck as above - Possibly related to new onset seizures. Patient has been started on Dilantin. Leukocytosis, - No clear source of infection, though the WBC count continues to fluctuate between 12-14 - Will hold off on antibiotics. DM type II - BG generally controlled - Mild SSI - ACHS accuchecks - Adjust medications as necessary Afib with RVR, - Restart PO meds when cleared to swallow, likely not today given mental status - Patient is on NOAC at home for afib - Currently rate controlled Decubitus Ulcers, present on admission - stage 3 on right marcum and stage 2 right heel, stage 3 left heel, stage 2 sacrum, stage 2 gluteal fold - Wound care consulted Hypokalemia, as above Hypernatremia, as above Hypomagnesemia, as above Rhabdomyolysis, resolved Lactic Acidosis, resolved Hyponatremia, resolved Dispo: Guarded. Cardiac arrest s/p ROSC on 04/02. Family has decided to make patient DNR. Will need to have family discussion regarding goals of care. <Crow Watson - Last Filed: 04/04/18 06:32> (1) Hyponatremia Code(s): E87.1 - HYPO-OSMOLALITY AND HYPONATREMIA Status: Resolved (2) Lactic acid acidosis Code(s): E87.2 - ACIDOSIS Status: Resolved (3) Altered mental state Code(s): R41.82 - ALTERED MENTAL STATUS, UNSPECIFIED Status: Acute (4) Rhabdomyolysis Code(s): M62.82 - RHABDOMYOLYSIS Status: Resolved (5) Diabetes mellitus Code(s): E11.9 - TYPE 2 DIABETES MELLITUS WITHOUT COMPLICATIONS Status: Chronic <Jefferson Reynolds - Last Filed: 04/04/18 10:23> Attending Addendum - Attending Addendum Date/Time: 04/04/18 1021 I personally evaluated the patient and discussed the management with Dr. Watson this morning. I agree with the History, Examination, Assessment and Plan documented above with any addition or exceptions noted below. I suspect significant underlying dementia as etiology for his mental status and recurrent dehyration and metabolic problems. Palliative care involved. <Jefferson Reynolds - Last Filed: 04/04/18 10:23>
[2018-04-04] MEDS ORDERED: Magnesium Sulfate 3 GM in Sodium Chloride 0.9% 100 ML IVPB SCH (06:45)
[2018-04-04] MEDS: Fosphenytoin Sodium 200 MG in Sodium Chloride 0.9% 50 ML IVPB SCH ×2 (08:20→20:44)
--- NOTE | 2018-04-04 08:45 | PRG ---
DATE OF SERVICE: 04/04/2018 He was extubated yesterday. He continues to be encephalopathic and it is hard to get any response fr om him, but he does look around. PHYSICAL EXAMINATION: VITAL SIGNS: Temperature 97.5, pulse 97, blood pressure 154/86, O2 sat 96%. GENERAL: He has a general disheveled appearance. HEENT: Otherwise unremarkable. NECK: No JVD. CHEST: Clear. CARDIAC: S1 and S2 regular. ABDOMEN: Soft. EXTREMITIES: No edema. His wound over his right anterior tibia. LABORATORY DATA: White blood cell count 14, hematocrit is 33, platelet count 219. Sodium 146, potas sium 2.9, chloride 108, CO2 27, BUN 20, creatinine 0.7, glucose 131. ASSESSMENT: 1. Encephalopathy. 2. Status post asystolic arrest. 3. Elderly with generalized failure to thrive. RECOMMENDATION: 1. Agree with palliative care consultation. 2. Free water replacement for his hypernatremia. 3. Replace potassium. 4. Minimize all sedative medications.
[2018-04-04] MEDS: Pantoprazole 40 MG VIAL IVP SCH (10:02)
--- NOTE | 2018-04-04 10:06 | RAD ---
PORTABLE CHEST: History: Follow up pneumothorax. Comparison: Prior day study. FINDINGS: Heart size within normal limits. There are arthrosclerotic changes of the aorta. Right sided apical p neumothorax appears stable. Parenchymal lung changes are similar to the prior examination. Subacute e mphysema is seen over both right and left sides of the chest. Endotracheal and NG tubes have been rem pepito. Left subclavian line remains in position. IMPRESSION: Interval removal of the endotracheal and NG tubes. Otherwise stable exam. POS: [facility]
[2018-04-04] MEDS: Timolol 0.5% Ophth Soln 5 ml Bottle EA EYE SCH ×3 (10:11→20:55)
[2018-04-04] MEDS: metFORMIN 500 MG TAB PO SCH ×2 (11:59→17:04)
[2018-04-04] MEDS: Citalopram 10 MG TAB PO SCH (11:59)
[2018-04-04] MEDS: Amlodipine 5 MG TAB PO SCH (11:59)
[2018-04-04] MEDS: Apixaban 5 MG TAB PO SCH (11:59)
[2018-04-04] MEDS: Vit A,C & E/Lutein/Minerals Tablet PO SCH (12:00)
[2018-04-04 14:08] LABS: Anion Gap 14 mmol/L (10-20); BUN (Urea Nitrogen) 19 mg/dL (8.4-25.7); Calc. Creatinine Clearance 59 mL/min (70-130); Calcium 8.5 mg/dL (7.8-10.44); Carbon Dioxide 26 mmol/L (23-31); Chloride 108 mmol/L (98-107); Estimated GFR-MDRD Greater than 90; Glucose 131 mg/dL (83-110); Magnesium 2.2 mg/dL (1.6-2.6); Potassium 3.4 mmol/L (3.5-5.1); Sodium 145 mmol/L (136-145)
[2018-04-04 17:08] VITALS: TEMP 97.6
[2018-04-04] MEDS ORDERED: Lorazepam 2 MG/ML VIAL SLOW IVP PRN (20:43)
[2018-04-04 20:55] VITALS: BP 132/68
--- NOTE | 2018-04-05 02:35 | PDOC.EVN ---
Event Note - Event Note Event Note: PE: HEENT: pupils fixed and dilated Card: No pulse, no auscultated heart sounds Resp: No spontaneous respirations Neuro: No withdrawal to painful stimuli TOD: 2355 on 04/04/2018 Orders: 1. TOD 2. Ok to remove all lines 3. Ok to release to refractive surgeon or for autopsy
--- NOTE | 2018-04-05 09:38 | EEG ---
Referring Physician: Jamia BLEDSOE EEG # [id number] TEST TYPE: ROUTINE PORTABLE INPATIENT REPORT: AN EEG USING THE [employer]NATIONAL TEN-TWENTY SYSTEM OF ELECTRODE PLACEMENT WAS PERFORMED. The best waking background is an 8 hertz alpha frequency. This is poorly maintained and the dominant background is a 6-7 hertz theta frequency. Photic stimulation was unremarkable. No epileptiform features were present. IMPRESSION: THIS IS AN ABNORMAL STUDY FOR THE FINDINGS OF MILD DIFFUSE SLOWING CONSISTENT WITH A DIFFUSE ENCEPHALOPATHIC PROCESS. Electronic Prepress Operator: MANN Skein Mercerizing Machine Operator: EEG.SEAN COSTA
--- NOTE | 2018-04-05 20:38 | EKG ---
Test Reason : POST ARREST Blood Pressure : / mmHG Vent. Rate : 083 BPM Atrial Rate : 080 BPM P-R Int : 000 ms QRS Dur : 072 ms QT Int : 422 ms P-R-T Axes : 000 060 -56 degrees QTc Int : 495 ms Atrial fibrillation with premature ventricular or aberrantly conducted complexes Septal infarct , age undetermined Abnormal ECG When compared with ECG of 29-MAR-2018 12:02, Vent. rate has decreased BY 41 BPM Confirmed by COURTNEY NARVAEZ (2) on 04/05/2018 8:37:58 PM Referred By: CARITO Confirmed By:COURTNEY NARVAEZ
--- NOTE | 2018-04-08 18:46 | DIS ---
DATE OF ADMISSION: 03/28/2018 DATE OF DISCHARGE: 04/04/2018 SUMMARY RESIDENT: Mickie Zelaya MD, PGY-3 TIME OF : 2355 hours. CAUSE OF : Tachy-luis manuel syndrome. SECONDARY DIAGNOSES: 1. Metabolic encephalopathy. 2. Diabetes mellitus type 2. 3. Atrial fibrillation. 4. Hypokalemia. 5. Hypomagnesemia. 6. Rhabdomyolysis. 7. Pneumothorax. HOSPITAL COURSE: The patient is an 87-year-old male, who presented to the emergency department via EMS after being found altered by his son and reportedly had a witnessed seizure. He was intubated for airway protection prior to transfer to the emergency department. He was admitted to the ICU, ventilatory support was provided, and electrolyte derangements were replaced. The patient was extubated after 1 day and reportedly did well and was conversant. On the morning of April 02, the patient had cardiac arrest likely related to tachy-luis manuel syndrome. CPR was initiated for 6 minutes. ROSC was achieved. The patient was re-intubated. Palliative Care was consulted to discuss goals of care with the patient's family. The patient's family stated that patient's wishes were to be DNR. Family decided on hospice, and the patient was transferred to medical floor for comfort measures. At 2355 hours, the patient was found to have no spontaneous respirations or heart or lung sounds. The patient's family was notified. Job ID: [id number]
== END 2018-04-04 23:55 | disposition expired | DRG 208 ==
LOC: ERS 17:38 → CCU 20:12 → 2SE 03-31 18:44 → CCU 04-02 02:31 → T4-A 04-04 19:22
PROVIDERS: ADMIT Family Medicine; ATTEND Family Medicine
PROC: 5A1935Z Respiratory Ventilation, Less than 24 Consecutive Hours (ICD-10-PCS; principal; 2018-03-28)
PROC: 05H633Z Insertion of Infusion Device into Left Subclavian Vein, Percutaneous Approach (ICD-10-PCS; 2018-03-28)
PROC: 5A12012 Performance of Cardiac Output, Single, Manual (ICD-10-PCS; 2018-04-02)
PROC: 0BH17EZ Insertion of Endotracheal Airway into Trachea, Via Natural or Artificial Opening (ICD-10-PCS; 2018-04-02)
PROC: 5A1945Z Respiratory Ventilation, 24-96 Consecutive Hours (ICD-10-PCS; 2018-04-02)
PROC: 4A00X4Z Measurement of Central Nervous Electrical Activity, External Approach (ICD-10-PCS; 2018-04-04)
DX: J96.00 Acute respiratory failure, unspecified whether with hypoxia or hypercapnia (principal); G93.41 Metabolic encephalopathy; L89.893 Pressure ulcer of other site, stage 3; L89.623 Pressure ulcer of left heel, stage 3; R65.10 Systemic inflammatory response syndrome (SIRS) of non-infectious origin without acute organ dysfunction; E87.1 Hypo-osmolality and hyponatremia; M62.82 Rhabdomyolysis; E87.2 Acidosis; S27.0XXA Traumatic pneumothorax, initial encounter; E87.0 Hyperosmolality and hypernatremia; T79.7XXA Traumatic subcutaneous emphysema, initial encounter; Z51.5 Encounter for palliative care; Z66 Do not resuscitate; E11.9 Type 2 diabetes mellitus without complications; I10 Essential (primary) hypertension; L89.612 Pressure ulcer of right heel, stage 2; L89.152 Pressure ulcer of sacral region, stage 2; L89.892 Pressure ulcer of other site, stage 2; R56.9 Unspecified convulsions; F03.90 Unspecified dementia, unspecified severity, without behavioral disturbance, psychotic disturbance, mood disturbance, and anxiety; I49.5 Sick sinus syndrome; I48.91 Unspecified atrial fibrillation; E87.6 Hypokalemia; E83.42 Hypomagnesemia; R62.7 Adult failure to thrive; I46.2 Cardiac arrest due to underlying cardiac condition; E86.0 Dehydration; X58.XXXA Exposure to other specified factors, initial encounter; Z79.01 Long term (current) use of anticoagulants; Z79.84 Long term (current) use of oral hypoglycemic drugs; Z79.899 Other long term (current) drug therapy
CPT/HCPCS: 36415; 36416; 36556; 51702; 70450; 71045; 72125; 76705; 80053; 80202; 80306; 80307; 81003; 81015; 82550; 82553; 82805; 83605; 83735; 83930; 83935; 84145; 84300; 84484; 85007; 85025; 85027; 85610; 85730; 86140; 87040; 87086; 87324; 87449; 93005; 93010; 94002; 94003; 94660; 94760; 95816; 95819; 96365; C9113; G8978-GP-CN; G8979-GP-CK; G8987-GO-CM; G8988-GO-CK; G8996-GN-CK; G8997-GN-CK; J0171; J1630; J1650; J2060; J2543; J2704; J3010; J3370; J3475; J3480; J7050; Q2009